=== PATIENT | female | born 1940 | race American Indian/Alaskan Native ===

== ENCOUNTER 2017-07-02 20:29 | Inpatient (IN) | payer MEDICAID ==
--- NOTE | 2017-07-02 21:40 | XRay Report ---
FINAL REPORT EXAM: XR CHEST ROUTINE 2V HISTORY: chest pain with dry cough COMPARISON: None available. FINDINGS:: Frontal and lateral views of the chest obtained. Cardiac silhouette is within normal limits. Mild elevation left hemidiaphragm. No focal consolidation or effusion. No pneumothorax. Visualized bony thorax is grossly intact. IMPRESSION:: No focal consolidation. Mild elevation left hemidiaphragm. Moderate hiatal hernia.
[2017-07-02 21:46] LABS: Basophils % (Auto) 0.8 % (0.0-1.8); Eosinophils % (Auto) 0.8 % (0.0-4.3); Hematocrit 37.7 % (30.3-42.9); Mean Corpuscular HGB Conc 32 % (30-34); Mean Corpuscular Volume 81 fl (79-97); Platelet Count 173 K/mm3 (140-440); Red Blood Count 4.64 M/mm3 (3.65-5.03); Red Cell Distribution Width 17.8 % (13.2-15.2); White Blood Count 6.2 K/mm3 (4.5-11.0)
[2017-07-02 21:47] LABS: Anion Gap 24 mmol/L; BUN/Creatinine Ratio 13; Blood Urea Nitrogen 23 mg/dL (7-17); Calcium 9.5 mg/dL (8.4-10.2); Carbon Dioxide 19 mmol/L (22-30); Chloride 95.7 mmol/L (98-107); Glucose 127 mg/dL (65-100); Potassium 5.3 mmol/L (3.6-5.0); Sodium 133 mmol/L (137-145)
[2017-07-02 21:55] LABS: Mean Corpuscular Hemoglobin 26 pg (28-32)
[2017-07-02] MEDS ORDERED: ULTRAM PO ONE (22:16)
[2017-07-02] MEDS ORDERED: ZOFRAN IV ONE (22:16)
[2017-07-02] MEDS ORDERED: NACL 0.9% 1000 ML 1,000 ML IV ONE (22:16)
[2017-07-02] MEDS ORDERED: TESSALON PERLES PO ONE (22:16)
--- NOTE | 2017-07-02 23:20 | Emergency Department Report ---
- General Chief Complaint: Chest Pain Stated Complaint: NAUSE,HEADACHE,CHEST PAIN Time Seen by Provider: 07/02/17 22:06 Source: patient, family Mode of arrival: Wheelchair Limitations: Physical Limitation - History of Present Illness Initial Comments: 76-year-old female with a past medical history of diabetes and hypertension and elevated cholesterol presents to the hospital with complaints of cough and chest pain 3 days. Patient complains of nonproductive cough which causes her anterior sternum to hurt. Pain is sharp, rated 7/10 in intensity, worse with palpation, cough, and movement. Patient states she's had constant nausea and therefore not eating or drinking appropriately. She denies vomiting, diarrhea, fever, or recent travel. Recently visited a sick family member. She did receive her flu shot. History of renal insufficiency in the past but corrected to normal with last blood test reported approximately 2 months ago in [place]. Patient is new to the area of the past 2 months and does not have a local PMD - Related Data Allergies Allergy/AdvReac Type Severity Reaction Status Date / Time codeine Allergy Unknown Verified 07/02/17 20:51 ED Review of Systems ROS: Stated complaint: NAUSE,HEADACHE,CHEST PAIN Other details as noted in HPI Comment: All other systems reviewed and negative Other: Constitutional: No fevers chills Eyes: No eye pain visual changes ENT: No ear pain or throat pain Neck: Denies pain Respiratory: Denies wheezing shortness of breath Cardiovascular: Denies palpitations, syncope GI: As per HPI denies abdominal pain, : Denies dysuria Musculoskeletal: Denies back pain Skin: Denies rash, lesions, erythema Neurologic: Denies headache, numbness, weakness Psychiatric: Denies suicidal ideation, hallucinations ED Past Medical Hx - Past Medical History Previous Medical History?: Yes Hx Hypertension: Yes Hx Diabetes: Yes Additional medical history: High Cholesterol - Social History Smoking Status: Never Smoker Substance Use Type: None ED Physical Exam - General Limitations: Physical Limitation - Other Other exam information: General: No limitations, patient is alert in no acute distress Head exam: Atraumatic, normocephalic Eyes exam: Normal appearance ENT: Moist mucous membrane, normal oropharynx Neck exam: Normal inspection, full range of motion, no meningismus nontender Respiratory exam: Clear to auscultation bilateral, no wheezes, rales, crackles Cardiovascular: Tachycardic, regular rhythm, reproducible sternal chest wall tenderness Abdomen: Soft, nondistended, mild epigastric tendern normal heart souess, no rebound or guarding, normal bowel sounds Extremity: Full range of motion normal inspection no deformity Back: Normal Inspection, full range of motion, no tenderness Neurologic: Alert, oriented x3, cranial nerves intact, no motor or sensory deficit Psychiatric: normal affect, normal mood Skin: Warm, dry, intact ED Course Vital Signs 07/02/17 07/02/17 07/02/17 20:56 21:39 21:45 Temperature 98.9 F Pulse Rate 69 108 H Respiratory 20 12 18 Rate Blood Pressure 93/72 136/85 Blood Pressure [Left] O2 Sat by Pulse 98 Oximetry 07/02/17 07/02/17 07/02/17 21:46 22:00 22:15 Temperature 99.8 F H Pulse Rate 113 H 104 H 107 H Respiratory 19 15 12 Rate Blood Pressure 132/77 134/78 Blood Pressure 142/80 [Left] O2 Sat by Pulse 96 95 94 Oximetry 07/02/17 07/02/17 07/02/17 22:30 22:45 22:46 Temperature Pulse Rate 105 H 104 H Respiratory 18 14 19 Rate Blood Pressure 136/84 124/66 Blood Pressure [Left] O2 Sat by Pulse 95 97 Oximetry 07/02/17 07/02/17 07/02/17 23:00 23:15 23:30 Temperature Pulse Rate 102 H 99 H 99 H Respiratory 22 23 23 Rate Blood Pressure 136/86 138/82 138/85 Blood Pressure [Left] O2 Sat by Pulse 93 90 94 Oximetry 07/02/17 07/03/17 07/03/17 23:45 00:01 00:05 Temperature Pulse Rate 99 H 111 H 103 H Respiratory 22 12 16 Rate Blood Pressure 144/77 144/77 144/77 Blood Pressure [Left] O2 Sat by Pulse 91 96 97 Oximetry 07/03/17 07/03/17 07/03/17 00:15 00:31 00:45 Temperature Pulse Rate 97 H 95 H 102 H Respiratory 21 22 22 Rate Blood Pressure 144/77 144/77 144/77 Blood Pressure [Left] O2 Sat by Pulse 94 95 94 Oximetry 07/03/17 00:56 Temperature 98.8 F Pulse Rate 106 H Respiratory 18 Rate Blood Pressure Blood Pressure 107/72 [Left] O2 Sat by Pulse 97 Oximetry - Reevaluation(s) Reevaluation #1: 07/03/17 01:21 Patient received 1 L normal saline with improvement of heart rate. Awaiting urine output ED Medical Decision Making - Lab Data Result diagrams: 07/02/17 21:04 07/02/17 21:04 Lab Results 07/02/17 07/02/17 07/02/17 Range/Units 21:04 21:04 23:26 WBC 6.2 (4.5-11.0) K/mm3 RBC 4.64 (3.65-5.03) M/mm3 Hgb 12.0 (10.1-14.3) gm/dl Hct 37.7 (30.3-42.9) % MCV 81 (79-97) fl MCH 26 L (28-32) pg MCHC 32 (30-34) % RDW 17.8 H (13.2-15.2) % Plt Count 173 (140-440) K/mm3 Lymph % (Auto) 19.3 (13.4-35.0) % [place] % (Auto) 13.3 H (0.0-7.3) % Eos % (Auto) 0.8 (0.0-4.3) % Baso % (Auto) 0.8 (0.0-1.8) % Lymph # 1.2 (1.2-5.4) K/mm3 [place] # 0.8 (0.0-0.8) K/mm3 Eos # 0.1 (0.0-0.4) K/mm3 Baso # 0.0 (0.0-0.1) K/mm3 Seg Neutrophils % 65.8 (40.0-70.0) % Seg Neutrophils # 4.1 (1.8-7.7) K/mm3 Sodium 133 L (137-145) mmol/L Potassium 5.3 H (3.6-5.0) mmol/L Chloride 95.7 L (98-107) mmol/L Carbon Dioxide 19 L (22-30) mmol/L Anion Gap 24 mmol/L BUN 23 H (7-17) mg/dL Creatinine 1.8 H (0.7-1.2) mg/dL Estimated GFR 33 ml/min BUN/Creatinine Ratio 13 % Glucose 127 H (65-100) mg/dL Calcium 9.5 (8.4-10.2) mg/dL Troponin T < 0.010 < 0.010 (0.00-0.029) ng/mL - EKG Data -: EKG Interpreted by Me EKG shows normal: sinus rhythm, axis (QRS -40), QRS complexes (79), ST-T waves ( upright T waves no ST elevation MT) Rate: tachycardia (112) - EKG Data 07/03/17 01:21 BP EKG shows no acute changes. Improved heart rate down to 97 after IV fluid - Radiology Data Radiology results: image reviewed (chest x-ray: Moderate hiatal hernia no acute infiltrate) - Medical Decision Making Patient treated with Tessalon Perles, tramadol, normal saline, and Zofran Chest pain is reproducible at the breastbone likely secondary to coughing Chest x-ray without acute infiltrate I suspect that patient's initially abnormalities and renal insufficiency likely secondary to poor by mouth intake and dehydration. Patient will be admitted to the hospital for further treatment. - Differential Diagnosis costochondritis, pneumonia, viral syndrome, dehydration, MT Critical Care Time: No Critical care attestation.: If time is entered above; I have spent that time in minutes in the direct care of this critically ill patient, excluding procedure time. ED Disposition Clinical Impression: Viral syndrome, Costochondritis, Nausea, Acute renal insufficiency, Hyperkalemia, Hyponatremia, Hiatal hernia Disposition: -09 OP ADMIT IP TO THIS HOSP Is pt being admited?: Yes Condition: Stable Time of Disposition: 23:19 (Dr Liao/hosp)
--- NOTE | 2017-07-02 23:56 | History and Physical Report ---
History of Present Illness Date of examination: 07/02/17 History of present illness: 76-year-old man with a history of hypertension, diabetes, hyperlipidemia comes emergency room with complaints of nonproductive cough, generalized body aches since Monday. She had decreased appetite, no oral intake since that time. Review Of Systems: Constitutional: no weight loss Ears, eyes, nose, mouth and throat: no nasal congestion, no nasal discharge, no sinus pressure, blurry vision, diplopia Neck: No neck pain or rigidity. Cardiovascular: no chest pain, orthopnea, palpitations Respiratory: No shortness of breath Gastrointestinal: no abdominal pain, hematochezia Genitourinary : no dysuria, frequency , hematuria Musculoskeletal: no muscle ache Integumentary: no rash, no pruritis Neurological: no parathesias, focal weakness Endocrine: no cold or heat intolerance, no polyuria or polydipsia Hematologic/Lymphatic: no easy bruising, no easy bleeding, no gland swelling Allergic/Immunologic: no urticaria, no angioedema. PAST MEDICAL HISTORY: hypertension, diabetes, hyperlipidemia PAST SURGICAL HISTORY: None FAMILY HISTORY: Hypertention, diabetes SOCIAL HISTORY: Denies tobacco, alcohol, drugs Medications and Allergies Allergies Allergy/AdvReac Type Severity Reaction Status Date / Time codeine Allergy Unknown Verified 07/02/17 20:51 Exam - Physical Exam Narrative exam: Gen. appearance: Patient lying in bed in no acute distress HEENT: Normocephalic/atraumatic, pupils equal round reactive to light, extra alkaline movement intact, no scleral icterus, no JVD or thyromegaly or nodule, neck is supple, mucous membrane moist, no erythema or exudate Heart: S1-S2, regular rate and rhythm Lungs: Clear to auscultation bilateral breathing comfortable Abdomen: Positive bowel sounds, nontender, nondistended, no organomegaly Extremities: No edema, cyanosis, clubbing Neuro:: Oriented 3 , cranial nerves II-12 intact, speech, motor intact Skin: No rash, nodules, warm dry - Constitutional Vitals: Temp Pulse Resp BP Pulse Ox 99.8 F H 113 H 19 142/80 96 07/02/17 21:46 07/02/17 21:46 07/02/17 22:46 07/02/17 21:46 07/02/17 21:46 Results - Labs CBC & Chem 7: 07/02/17 21:04 07/02/17 21:04 Labs: Abnormal lab results 07/02/17 07/02/17 Range/Units 21:04 21:04 MCH 26 L (28-32) pg RDW 17.8 H (13.2-15.2) % [place] % (Auto) 13.3 H (0.0-7.3) % Sodium 133 L (137-145) mmol/L Potassium 5.3 H (3.6-5.0) mmol/L Chloride 95.7 L (98-107) mmol/L Carbon Dioxide 19 L (22-30) mmol/L BUN 23 H (7-17) mg/dL Creatinine 1.8 H (0.7-1.2) mg/dL Glucose 127 H (65-100) mg/dL - Imaging and Cardiology EKG: image reviewed Chest x-ray: image reviewed Assessment and Plan Assessment Acute renal insufficiency Acute bronchitis Hypertension Diabetes Hyperlipidemia Plan Admit medicine Heart IV fluids, IV Levaquin Check fingersticks and initiate insulin sliding scale Continue appropriate outpatient medications DVT prophylaxis
[2017-07-03] MEDS ORDERED: DULCOLAX PR PRN (00:42)
[2017-07-03] MEDS ORDERED: TYLENOL PO PRN (00:42)
[2017-07-03] MEDS ORDERED: LEVAQUIN 750MG/150ML 750 MG/150 ML BAG IV SCH (00:42)
[2017-07-03] MEDS ORDERED: MILK OF MAGNESIA PO PRN (00:42)
[2017-07-03] MEDS ORDERED: D50W (25GM) Syringe IV PRN (00:42)
[2017-07-03] MEDS ORDERED: ZOFRAN IV PRN (00:42)
[2017-07-03] MEDS ORDERED: APRESOLINE IV PRN (00:50)
[2017-07-03] MEDS: NACL 0.9% 1000 ML 1,000 ML IV SCH ×2 (02:35→13:46)
[2017-07-03] MEDS ORDERED: BENADRYL IV PRN (02:48)
[2017-07-03] MEDS: ZITHROMAX 500 MG in NACL 0.9% 250ML 250 ML IV SCH ×2 (04:26→09:19)
[2017-07-03] MEDS: NOVOLOG SUB-Q SCH ×4 (07:33→23:44)
[2017-07-03 08:29] LABS: Hematocrit 33.3 % (30.3-42.9); Hemoglobin 10.7 gm/dl (10.1-14.3); Mean Corpuscular HGB Conc 32 % (30-34); Mean Corpuscular Hemoglobin 27 pg (28-32); Mean Corpuscular Volume 82 fl (79-97); Platelet Count 131 K/mm3 (140-440); Red Blood Count 4.06 M/mm3 (3.65-5.03); Red Cell Distribution Width 18.1 % (13.2-15.2); White Blood Count 4.1 K/mm3 (4.5-11.0)
[2017-07-03 08:44] LABS: Calcium 8.6 mg/dL (8.4-10.2); Chloride 101.9 mmol/L (98-107); Potassium 4.9 mmol/L (3.6-5.0)
[2017-07-03] MEDS ORDERED: LOVENOX SUB-Q SCH (10:00)
[2017-07-03] MEDS ORDERED: ZITHROMAX 500 MG in NACL 0.9% 250ML 250 ML IV SCH (10:00)
--- NOTE | 2017-07-03 14:54 | Progress Note ---
<NIR MARTINEZ - Last Filed: 07/03/17 15:03> Assessment and Plan Assessment and plan: 76-year-old female with a history of hypertension, diabetes, hyperlipidemia comes emergency room with complaints of nonproductive cough, generalized body aches since Monday. She had decreased appetite, no oral intake since that time. Assessment and Plan Acute renal insufficiency Continue IV fluids Recheck labs in am. If no improvement/trending up Nephrology consult Acute bronchitis Continue IV ABX Hypertension Continue antihypertensives Diabetes SSI, Accu checks DVT prophylaxis Lovenox History Interval history: Patient is alert and resting comfortably in bed. She denies shortness of breath chest pain nausea vomiting Hospitalist Physical - Constitutional Vitals: Temp Pulse Resp BP Pulse Ox 99.2 F 93 H 20 108/69 96 07/03/17 13:18 07/03/17 13:18 07/03/17 13:18 07/03/17 13:18 07/03/17 13:18 General appearance: Present: no acute distress, well-nourished - EENT Eyes: Present: PERRL, EOM intact ENT: hearing intact, clear oral mucosa, dentition normal - Neck Neck: Present: supple, normal ROM - Respiratory Respiratory effort: normal Respiratory: bilateral: CTA - Cardiovascular Rhythm: regular Heart Sounds: Present: S1 & S2 - Extremities Extremities: no ischemia, No edema Peripheral Pulses: within normal limits - Abdominal General gastrointestinal: soft, non-tender - Integumentary Integumentary: Present: clear, warm, dry - Psychiatric Psychiatric: appropriate mood/affect, intact judgment & insight, cooperative - Neurologic Neurologic: CNII-XII intact, moves all extremities - Allied Health Allied health notes reviewed: nursing Results - Labs CBC & Chem 7: 07/03/17 08:09 07/03/17 08:09 Labs: Laboratory Last Values WBC 4.1 K/mm3 (4.5-11.0) L 07/03/17 08:09 RBC 4.06 M/mm3 (3.65-5.03) 07/03/17 08:09 Hgb 10.7 gm/dl (10.1-14.3) 07/03/17 08:09 Hct 33.3 % (30.3-42.9) 07/03/17 08:09 MCV 82 fl (79-97) 07/03/17 08:09 MCH 27 pg (28-32) L 07/03/17 08:09 MCHC 32 % (30-34) 07/03/17 08:09 RDW 18.1 % (13.2-15.2) H 07/03/17 08:09 Plt Count 131 K/mm3 (140-440) L 07/03/17 08:09 Lymph % (Auto) 19.3 % (13.4-35.0) 07/02/17 21:04 [place] % (Auto) 13.3 % (0.0-7.3) H 07/02/17 21:04 Eos % (Auto) 0.8 % (0.0-4.3) 07/02/17 21:04 Baso % (Auto) 0.8 % (0.0-1.8) 07/02/17 21:04 Lymph # 1.2 K/mm3 (1.2-5.4) 07/02/17 21:04 [place] # 0.8 K/mm3 (0.0-0.8) 07/02/17 21:04 Eos # 0.1 K/mm3 (0.0-0.4) 07/02/17 21:04 Baso # 0.0 K/mm3 (0.0-0.1) 07/02/17 21:04 Seg Neutrophils % 65.8 % (40.0-70.0) 07/02/17 21:04 Seg Neutrophils # 4.1 K/mm3 (1.8-7.7) 07/02/17 21:04 Sodium 138 mmol/L (137-145) 07/03/17 08:09 Potassium 4.9 mmol/L (3.6-5.0) 07/03/17 08:09 Chloride 101.9 mmol/L (98-107) 07/03/17 08:09 Carbon Dioxide 23 mmol/L (22-30) 07/03/17 08:09 Anion Gap 18 mmol/L 07/03/17 08:09 BUN 24 mg/dL (7-17) H 07/03/17 08:09 Creatinine 1.6 mg/dL (0.7-1.2) H 07/03/17 08:09 Estimated GFR 38 ml/min 07/03/17 08:09 BUN/Creatinine Ratio 15 % 07/03/17 08:09 Glucose 99 mg/dL (65-100) 07/03/17 08:09 POC Glucose 101 (70-105) 07/03/17 11:55 Calcium 8.6 mg/dL (8.4-10.2) 07/03/17 08:09 Troponin T < 0.010 ng/mL (0.00-0.029) 07/03/17 05:50 - Imaging and Cardiology EKG: report reviewed <BANDAR CHESTER - Last Filed: 07/04/17 18:46> Assessment and Plan Assessment and plan: I saw and evaluated the patient. I agree with the findings and the plan of care as documented in the Nurse Practitioner's~note, with the following corrections and additions. Patient is 76 yo with acute bronchitis, TRICIA due to vasomotor nephropathy. Continue iv fluids. Hospitalist Physical - Constitutional Vitals: Temp Pulse Resp BP Pulse Ox 99.0 F 87 20 151/79 99 07/04/17 16:21 07/04/17 16:21 07/04/17 16:21 07/04/17 16:21 07/04/17 16:21 Results - Labs CBC & Chem 7: 07/04/17 04:52 07/04/17 04:52 Labs: Laboratory Last Values WBC 4.2 K/mm3 (4.5-11.0) L 07/04/17 04:52 RBC 4.23 M/mm3 (3.65-5.03) 07/04/17 04:52 Hgb 10.8 gm/dl (10.1-14.3) 07/04/17 04:52 Hct 34.2 % (30.3-42.9) 07/04/17 04:52 MCV 81 fl (79-97) 07/04/17 04:52 MCH 26 pg (28-32) L 07/04/17 04:52 MCHC 32 % (30-34) 07/04/17 04:52 RDW 17.6 % (13.2-15.2) H 07/04/17 04:52 Plt Count 147 K/mm3 (140-440) 07/04/17 04:52 Lymph % (Auto) 38.3 % (13.4-35.0) H 07/04/17 04:52 [place] % (Auto) 9.0 % (0.0-7.3) H 07/04/17 04:52 Eos % (Auto) 1.6 % (0.0-4.3) 07/04/17 04:52 Baso % (Auto) 0.6 % (0.0-1.8) 07/04/17 04:52 Lymph # 1.6 K/mm3 (1.2-5.4) 07/04/17 04:52 [place] # 0.4 K/mm3 (0.0-0.8) 07/04/17 04:52 Eos # 0.1 K/mm3 (0.0-0.4) 07/04/17 04:52 Baso # 0.0 K/mm3 (0.0-0.1) 07/04/17 04:52 Seg Neutrophils % 50.5 % (40.0-70.0) 07/04/17 04:52 Seg Neutrophils # 2.1 K/mm3 (1.8-7.7) 07/04/17 04:52 Sodium 141 mmol/L (137-145) 07/04/17 04:52 Potassium 4.8 mmol/L (3.6-5.0) 07/04/17 04:52 Chloride 104.7 mmol/L (98-107) 07/04/17 04:52 Carbon Dioxide 22 mmol/L (22-30) 07/04/17 04:52 Anion Gap 19 mmol/L 07/04/17 04:52 BUN 21 mg/dL (7-17) H 07/04/17 04:52 Creatinine 1.4 mg/dL (0.7-1.2) H 07/04/17 04:52 Estimated GFR 44 ml/min 07/04/17 04:52 BUN/Creatinine Ratio 15 % 07/04/17 04:52 Glucose 88 mg/dL (65-100) 07/04/17 04:52 POC Glucose 100 (70-105) 07/04/17 16:27 Calcium 9.1 mg/dL (8.4-10.2) 07/04/17 04:52 Troponin T < 0.010 ng/mL (0.00-0.029) 07/03/17 05:50
[2017-07-04 05:26] LABS: Basophils % (Auto) 0.6 % (0.0-1.8); Eosinophils % (Auto) 1.6 % (0.0-4.3); Hematocrit 34.2 % (30.3-42.9); Hemoglobin 10.8 gm/dl (10.1-14.3); Mean Corpuscular HGB Conc 32 % (30-34); Mean Corpuscular Hemoglobin 26 pg (28-32); Mean Corpuscular Volume 81 fl (79-97); Platelet Count 147 K/mm3 (140-440); Red Blood Count 4.23 M/mm3 (3.65-5.03); Red Cell Distribution Width 17.6 % (13.2-15.2); White Blood Count 4.2 K/mm3 (4.5-11.0)
[2017-07-04 05:44] LABS: Calcium 9.1 mg/dL (8.4-10.2); Chloride 104.7 mmol/L (98-107); Potassium 4.8 mmol/L (3.6-5.0)
[2017-07-04] MEDS: NOVOLOG SUB-Q SCH ×4 (07:30→22:17)
[2017-07-04] MEDS ORDERED: PROVENTIL IH PRN (09:22)
[2017-07-04] MEDS: LOVENOX SUB-Q SCH (10:00)
[2017-07-04] MEDS: ZITHROMAX PO SCH (10:02)
--- NOTE | 2017-07-04 10:07 | Progress Note ---
<NIR MARTINEZ - Last Filed: 07/04/17 15:40> Assessment and Plan Assessment and plan: 76-year-old female with a history of hypertension, diabetes, hyperlipidemia comes emergency room with complaints of nonproductive cough, generalized body aches since Monday. She had decreased appetite, no oral intake since that time. Assessment and Plan Acute renal insufficiency Continue IV fluids BUN Cr trending down will check in am Acute bronchitis Continue IV ABX Hypertension Continue antihypertensives Diabetes SSI, Accu checks DVT prophylaxis Lovenox History Interval history: Patient is alert and resting comfortably in bed. She denies shortness of breath chest pain nausea vomiting Hospitalist Physical - Constitutional Vitals: Temp Pulse Resp BP Pulse Ox 99.4 F 82 22 103/52 96 07/04/17 07:43 07/04/17 07:43 07/04/17 07:43 07/04/17 07:43 07/04/17 07:43 General appearance: Present: no acute distress, well-nourished - EENT Eyes: Present: PERRL, EOM intact ENT: hearing intact, clear oral mucosa - Neck Neck: Present: supple, normal ROM - Respiratory Respiratory effort: normal Respiratory: bilateral: CTA - Cardiovascular Rhythm: regular Heart Sounds: Present: S1 & S2 - Extremities Extremities: no ischemia, No edema Peripheral Pulses: within normal limits - Abdominal General gastrointestinal: soft, non-tender - Integumentary Integumentary: Present: clear, warm, erythema - Neurologic Neurologic: CNII-XII intact, moves all extremities - Allied Health Allied health notes reviewed: nursing Results - Labs CBC & Chem 7: 07/04/17 04:52 07/04/17 04:52 Labs: Laboratory Last Values WBC 4.2 K/mm3 (4.5-11.0) L 07/04/17 04:52 RBC 4.23 M/mm3 (3.65-5.03) 07/04/17 04:52 Hgb 10.8 gm/dl (10.1-14.3) 07/04/17 04:52 Hct 34.2 % (30.3-42.9) 07/04/17 04:52 MCV 81 fl (79-97) 07/04/17 04:52 MCH 26 pg (28-32) L 07/04/17 04:52 MCHC 32 % (30-34) 07/04/17 04:52 RDW 17.6 % (13.2-15.2) H 07/04/17 04:52 Plt Count 147 K/mm3 (140-440) 07/04/17 04:52 Lymph % (Auto) 38.3 % (13.4-35.0) H 07/04/17 04:52 [place] % (Auto) 9.0 % (0.0-7.3) H 07/04/17 04:52 Eos % (Auto) 1.6 % (0.0-4.3) 07/04/17 04:52 Baso % (Auto) 0.6 % (0.0-1.8) 07/04/17 04:52 Lymph # 1.6 K/mm3 (1.2-5.4) 07/04/17 04:52 [place] # 0.4 K/mm3 (0.0-0.8) 07/04/17 04:52 Eos # 0.1 K/mm3 (0.0-0.4) 07/04/17 04:52 Baso # 0.0 K/mm3 (0.0-0.1) 07/04/17 04:52 Seg Neutrophils % 50.5 % (40.0-70.0) 07/04/17 04:52 Seg Neutrophils # 2.1 K/mm3 (1.8-7.7) 07/04/17 04:52 Sodium 141 mmol/L (137-145) 07/04/17 04:52 Potassium 4.8 mmol/L (3.6-5.0) 07/04/17 04:52 Chloride 104.7 mmol/L (98-107) 07/04/17 04:52 Carbon Dioxide 22 mmol/L (22-30) 07/04/17 04:52 Anion Gap 19 mmol/L 07/04/17 04:52 BUN 21 mg/dL (7-17) H 07/04/17 04:52 Creatinine 1.4 mg/dL (0.7-1.2) H 07/04/17 04:52 Estimated GFR 44 ml/min 07/04/17 04:52 BUN/Creatinine Ratio 15 % 07/04/17 04:52 Glucose 88 mg/dL (65-100) 07/04/17 04:52 POC Glucose 80 (70-105) 07/04/17 05:28 Calcium 9.1 mg/dL (8.4-10.2) 07/04/17 04:52 Troponin T < 0.010 ng/mL (0.00-0.029) 07/03/17 05:50 <BANDAR CHESTER - Last Filed: 07/04/17 18:52> Assessment and Plan Assessment and plan: I saw and evaluated the patient. I agree with the findings and the plan of care as documented in the Nurse Practitioner's~note, with the following corrections and additions. Patient complains of wheezing; TRICIA due to vasomotor nephropathy. Inproving Cr 1.4 today Acute bronchitis. add Duoneb Diabetes mellitus type 2 Hospitalist Physical - Constitutional Vitals: Temp Pulse Resp BP Pulse Ox 99.0 F 87 20 151/79 99 07/04/17 16:21 07/04/17 16:21 07/04/17 16:21 07/04/17 16:21 07/04/17 16:21 Results - Labs CBC & Chem 7: 07/04/17 04:52 07/04/17 04:52 Labs: Laboratory Last Values WBC 4.2 K/mm3 (4.5-11.0) L 07/04/17 04:52 RBC 4.23 M/mm3 (3.65-5.03) 07/04/17 04:52 Hgb 10.8 gm/dl (10.1-14.3) 07/04/17 04:52 Hct 34.2 % (30.3-42.9) 07/04/17 04:52 MCV 81 fl (79-97) 07/04/17 04:52 MCH 26 pg (28-32) L 07/04/17 04:52 MCHC 32 % (30-34) 07/04/17 04:52 RDW 17.6 % (13.2-15.2) H 07/04/17 04:52 Plt Count 147 K/mm3 (140-440) 07/04/17 04:52 Lymph % (Auto) 38.3 % (13.4-35.0) H 07/04/17 04:52 [place] % (Auto) 9.0 % (0.0-7.3) H 07/04/17 04:52 Eos % (Auto) 1.6 % (0.0-4.3) 07/04/17 04:52 Baso % (Auto) 0.6 % (0.0-1.8) 07/04/17 04:52 Lymph # 1.6 K/mm3 (1.2-5.4) 07/04/17 04:52 [place] # 0.4 K/mm3 (0.0-0.8) 07/04/17 04:52 Eos # 0.1 K/mm3 (0.0-0.4) 07/04/17 04:52 Baso # 0.0 K/mm3 (0.0-0.1) 07/04/17 04:52 Seg Neutrophils % 50.5 % (40.0-70.0) 07/04/17 04:52 Seg Neutrophils # 2.1 K/mm3 (1.8-7.7) 07/04/17 04:52 Sodium 141 mmol/L (137-145) 07/04/17 04:52 Potassium 4.8 mmol/L (3.6-5.0) 07/04/17 04:52 Chloride 104.7 mmol/L (98-107) 07/04/17 04:52 Carbon Dioxide 22 mmol/L (22-30) 07/04/17 04:52 Anion Gap 19 mmol/L 07/04/17 04:52 BUN 21 mg/dL (7-17) H 07/04/17 04:52 Creatinine 1.4 mg/dL (0.7-1.2) H 07/04/17 04:52 Estimated GFR 44 ml/min 07/04/17 04:52 BUN/Creatinine Ratio 15 % 07/04/17 04:52 Glucose 88 mg/dL (65-100) 07/04/17 04:52 POC Glucose 100 (70-105) 07/04/17 16:27 Calcium 9.1 mg/dL (8.4-10.2) 07/04/17 04:52 Troponin T < 0.010 ng/mL (0.00-0.029) 07/03/17 05:50
[2017-07-04] MEDS: DUONEB *Not for PRN Use IH SCH ×3 (10:18→21:04)
[2017-07-04] MEDS: NACL 0.9% 1000 ML 1,000 ML IV SCH (22:16)
[2017-07-05] MEDS: DUONEB *Not for PRN Use IH SCH ×4 (02:37→20:58)
[2017-07-05] MEDS: NOVOLOG SUB-Q SCH ×4 (07:30→22:00)
[2017-07-05] MEDS: LOVENOX SUB-Q SCH (09:52)
[2017-07-05] MEDS: ZITHROMAX PO SCH (09:55)
[2017-07-05 10:35] LABS: Albumin 3.5 g/dL (3.9-5); Albumin/Globulin Ratio 1.2 %; Bilirubin,Total 0.3 mg/dL (0.1-1.2); Calcium 8.6 mg/dL (8.4-10.2); Chloride 105.9 mmol/L (98-107); Total Protein 6.4 g/dL (6.3-8.2)
--- NOTE | 2017-07-05 12:19 | Discharge Summary ---
<NIR MARTINEZ - Last Filed: 07/06/17 11:56> Providers - Providers Date of Admission: 07/02/17 23:55 Date of discharge: 07/06/17 Attending physician: BANDAR CHESTER Primary care physician: [employer] EDUCATION RESOURCE TEACHER Hospitalization Condition: Stable Hospital course: 76-year-old female with a past medical history of diabetes and hypertension and elevated cholesterol presents to the hospital with complaints of cough and chest pain 3 days. Patient complains of nonproductive cough which causes her anterior sternum to hurt. Pain is sharp, rated 7/10 in intensity, worse with palpation, cough, and movement. Patient states she's had constant nausea and therefore not eating or drinking appropriately. She denies vomiting, diarrhea, fever, or recent travel. Recently visited a sick family member. She did receive her flu shot. History of renal insufficiency in the past but corrected to normal with last blood test reported approximately 2 months ago in [place]. Chest X ray showed no focal consolidation, mild elevation left hemidiaphragm, hiatal hernia. Patient was treated with abx along with Duoneb. She was placed on Lovenox for DVT prophylaxis and was placed on SSI for antihypertensives DM and HTN. Discharge Diagnosis Acute renal insufficiency Acute bronchitis Hypertension Diabetes Disposition: DC- TO HOME OR SELFCARE Core Measure Documentation - Palliative Care Palliative Care/ Comfort Measures: Not Applicable - Core Measures Any of the following diagnoses?: none Exam - Constitutional Vitals: Temp Pulse Resp BP Pulse Ox 98.5 F 84 19 126/73 98 07/05/17 08:01 07/05/17 08:01 07/05/17 08:01 07/05/17 08:01 07/05/17 08:01 General appearance: Present: no acute distress, well-nourished, obese - EENT Eyes: Present: PERRL, EOM intact ENT: hearing intact, clear oral mucosa, dentition normal - Neck Neck: Present: supple, normal ROM - Respiratory Respiratory effort: normal Respiratory: bilateral: CTA - Cardiovascular Rhythm: regular Heart Sounds: Present: S1 & S2 - Extremities Extremities: pulses symmetrical, No edema Peripheral Pulses: within normal limits - Abdominal General gastrointestinal: Present: soft, non-tender, non-distended, normal bowel sounds Female genitourinary: Present: deferred - Rectal Rectal Exam: deferred - Integumentary Integumentary: Present: clear, warm, dry - Musculoskeletal Musculoskeletal: gait normal, strength equal bilaterally - Psychiatric Psychiatric: appropriate mood/affect, intact judgment & insight - Neurologic Neurologic: CNII-XII intact, moves all extremities - Allied Health Allied health notes reviewed: nursing Plan Diet: low fat, low cholesterol, low salt, diabetic Follow up with: PRIMARY CARE, [Primary Care Provider] - 3-5 Days Prescriptions: ALBUTEROL Inhaler [ProAir HFA Inhaler] 2 puff IH QID PRN #1 inhalation PRN Reason: Shortness Of Breath Azithromycin [Zithromax Z-ULISES] 250 mg PO DAILY #1 tab Prednisone [predniSONE 5 mg (6-Day Pack, 21 Tabs)] 5 mg PO .TAPER #1 tab.ds.pk <ANNA TRAORE - Last Filed: 07/07/17 08:44> Providers - Providers Date of Admission: 07/02/17 23:55 Attending physician: ANNA TRAORE Primary care physician: [employer] RESOURCE TEACHER Hospitalization Hospital course: I saw and evaluated the patient. I agree with the findings and the plan of care as documented in the Nurse Practitioner's~note. Exam - Constitutional Vitals: Temp Pulse Resp BP Pulse Ox 99.1 F 92 H 15 131/81 98 07/06/17 12:03 07/06/17 12:03 07/06/17 12:03 07/06/17 12:03 07/06/17 12:03
--- NOTE | 2017-07-05 12:49 | Query- Renal Failure ---
Yasmine Lund___Ac Date:__07/05/2017 Deportation Officer/SUN:___Ritika Phone#:__[phone] Exercise your independent professional judgment when responding to query. Questions asked do not imply a particular answer is desired or expected. We greatly appreciate your clarification on this issue. Clinical Documentation States: 76 Year old female was admitted on 07/02/2017 for upper respiratory failure. The Discharge summary states "Discharge Diagnosis Acute renal insufficiency." Clinical Findings Show: Creatinine: 1.8 Please clarify if you mean: Acute Renal Failure with or due to: [ ] Tubular Necrosis [ ] Medullary Necrosis [x ] Vasomotor Nephropathy [ ] Shock Kidney [ ] Tubular Nephrosis [ ] Renal Tubular Stasis [ ] Cortical Necrosis [ ] Acute Renal Failure (unspecified) [ ] Lower Tubular Nephrosis [ ] Other: [ ] Not Applicable Present on Admission: [ x] Yes (Y) [ ] Clinically undeterminable (W) [ ] No (N) Please also document response in your Progress Notes and/or Discharge Summary and indicate if the condition was present on admission. MONIQUE
--- NOTE | 2017-07-05 14:43 | Progress Note ---
<NIR MARTINEZ - Last Filed: 07/05/17 14:42> Assessment and Plan Assessment and plan: 76-year-old female with a history of hypertension, diabetes, hyperlipidemia comes emergency room with complaints of nonproductive cough, generalized body aches since Monday. She had decreased appetite, no oral intake since that time. Assessment and Plan Acute renal insufficiency Continue IV fluids BUN Cr trending down will check in am, if normal pt likely to be discharged Acute bronchitis Continue IV ABX Hypertension Continue antihypertensives Diabetes SSI, Accu checks DVT prophylaxis Lovenox History Interval history: Patient is alert and resting comfortably in bed. She denies shortness of breath chest pain nausea vomiting Hospitalist Physical - Constitutional Vitals: Temp Pulse Resp BP Pulse Ox 98.5 F 84 19 126/73 98 07/05/17 08:01 07/05/17 08:01 07/05/17 08:01 07/05/17 08:01 07/05/17 08:01 General appearance: Present: no acute distress, well-nourished, obese - EENT Eyes: Present: PERRL, EOM intact ENT: hearing intact, clear oral mucosa - Neck Neck: Present: supple, normal ROM - Respiratory Respiratory effort: normal Respiratory: bilateral: CTA - Cardiovascular Rhythm: regular Heart Sounds: Present: S1 & S2 - Extremities Extremities: no ischemia, No edema Peripheral Pulses: within normal limits - Integumentary Integumentary: Present: clear, warm, dry - Psychiatric Psychiatric: appropriate mood/affect, intact judgment & insight - Neurologic Neurologic: CNII-XII intact - Allied Health Allied health notes reviewed: nursing Results - Labs CBC & Chem 7: 07/04/17 04:52 07/05/17 09:35 Labs: Laboratory Last Values WBC 4.2 K/mm3 (4.5-11.0) L 07/04/17 04:52 RBC 4.23 M/mm3 (3.65-5.03) 07/04/17 04:52 Hgb 10.8 gm/dl (10.1-14.3) 07/04/17 04:52 Hct 34.2 % (30.3-42.9) 07/04/17 04:52 MCV 81 fl (79-97) 07/04/17 04:52 MCH 26 pg (28-32) L 07/04/17 04:52 MCHC 32 % (30-34) 07/04/17 04:52 RDW 17.6 % (13.2-15.2) H 07/04/17 04:52 Plt Count 147 K/mm3 (140-440) 07/04/17 04:52 Lymph % (Auto) 38.3 % (13.4-35.0) H 07/04/17 04:52 [place] % (Auto) 9.0 % (0.0-7.3) H 07/04/17 04:52 Eos % (Auto) 1.6 % (0.0-4.3) 07/04/17 04:52 Baso % (Auto) 0.6 % (0.0-1.8) 07/04/17 04:52 Lymph # 1.6 K/mm3 (1.2-5.4) 07/04/17 04:52 [place] # 0.4 K/mm3 (0.0-0.8) 07/04/17 04:52 Eos # 0.1 K/mm3 (0.0-0.4) 07/04/17 04:52 Baso # 0.0 K/mm3 (0.0-0.1) 07/04/17 04:52 Seg Neutrophils % 50.5 % (40.0-70.0) 07/04/17 04:52 Seg Neutrophils # 2.1 K/mm3 (1.8-7.7) 07/04/17 04:52 Sodium 142 mmol/L (137-145) 07/05/17 09:35 Potassium 4.0 mmol/L (3.6-5.0) 07/05/17 09:35 Chloride 105.9 mmol/L (98-107) 07/05/17 09:35 Carbon Dioxide 20 mmol/L (22-30) L 07/05/17 09:35 Anion Gap 20 mmol/L 07/05/17 09:35 BUN 16 mg/dL (7-17) 07/05/17 09:35 Creatinine 1.3 mg/dL (0.7-1.2) H 07/05/17 09:35 Estimated GFR 48 ml/min 07/05/17 09:35 BUN/Creatinine Ratio 12 % 07/05/17 09:35 Glucose 170 mg/dL (65-100) H 07/05/17 09:35 POC Glucose 111 (70-105) H 07/05/17 11:35 Calcium 8.6 mg/dL (8.4-10.2) 07/05/17 09:35 Total Bilirubin 0.30 mg/dL (0.1-1.2) 07/05/17 09:35 AST 71 units/L (5-40) H 07/05/17 09:35 ALT 58 units/L (7-56) H 07/05/17 09:35 Alkaline Phosphatase 102 units/L (35-129) 07/05/17 09:35 Troponin T < 0.010 ng/mL (0.00-0.029) 07/03/17 05:50 Total Protein 6.4 g/dL (6.3-8.2) 07/05/17 09:35 Albumin 3.5 g/dL (3.9-5) L 07/05/17 09:35 Albumin/Globulin Ratio 1.2 % 07/05/17 09:35 <BANDAR CHESTER - Last Filed: 07/06/17 06:23> Assessment and Plan Assessment and plan: I saw and evaluated the patient. I agree with the findings and the plan of care as documented in the Nurse Practitioner's~note, with the following corrections and additions. Patient with TRICIA, acute bronchitis. Creatinine improving 1.3 today. Continue iv fluid and recheck in am. May d/c home if Creatinine 1.2 or less. Hospitalist Physical - Constitutional Vitals: Temp Pulse Resp BP Pulse Ox 98.6 F 99 H 18 114/70 98 07/06/17 04:30 07/06/17 04:30 07/06/17 04:30 07/06/17 04:30 07/06/17 04:30 Results - Labs CBC & Chem 7: 07/04/17 04:52 07/06/17 05:33 Labs: Laboratory Last Values WBC 4.2 K/mm3 (4.5-11.0) L 07/04/17 04:52 RBC 4.23 M/mm3 (3.65-5.03) 07/04/17 04:52 Hgb 10.8 gm/dl (10.1-14.3) 07/04/17 04:52 Hct 34.2 % (30.3-42.9) 07/04/17 04:52 MCV 81 fl (79-97) 07/04/17 04:52 MCH 26 pg (28-32) L 07/04/17 04:52 MCHC 32 % (30-34) 07/04/17 04:52 RDW 17.6 % (13.2-15.2) H 07/04/17 04:52 Plt Count 147 K/mm3 (140-440) 07/04/17 04:52 Lymph % (Auto) 38.3 % (13.4-35.0) H 07/04/17 04:52 [place] % (Auto) 9.0 % (0.0-7.3) H 07/04/17 04:52 Eos % (Auto) 1.6 % (0.0-4.3) 07/04/17 04:52 Baso % (Auto) 0.6 % (0.0-1.8) 07/04/17 04:52 Lymph # 1.6 K/mm3 (1.2-5.4) 07/04/17 04:52 [place] # 0.4 K/mm3 (0.0-0.8) 07/04/17 04:52 Eos # 0.1 K/mm3 (0.0-0.4) 07/04/17 04:52 Baso # 0.0 K/mm3 (0.0-0.1) 07/04/17 04:52 Seg Neutrophils % 50.5 % (40.0-70.0) 07/04/17 04:52 Seg Neutrophils # 2.1 K/mm3 (1.8-7.7) 07/04/17 04:52 Sodium 143 mmol/L (137-145) 07/06/17 05:33 Potassium 4.0 mmol/L (3.6-5.0) 07/06/17 05:33 Chloride 106.1 mmol/L (98-107) 07/06/17 05:33 Carbon Dioxide 22 mmol/L (22-30) 07/06/17 05:33 Anion Gap 19 mmol/L 07/06/17 05:33 BUN 15 mg/dL (7-17) 07/06/17 05:33 Creatinine 1.2 mg/dL (0.7-1.2) 07/06/17 05:33 Estimated GFR 53 ml/min 07/06/17 05:33 BUN/Creatinine Ratio 13 % 07/06/17 05:33 Glucose 109 mg/dL (65-100) H 07/06/17 05:33 POC Glucose 113 (70-105) H 07/05/17 22:50 Calcium 8.9 mg/dL (8.4-10.2) 07/06/17 05:33 Total Bilirubin 0.20 mg/dL (0.1-1.2) 07/06/17 05:33 AST 74 units/L (5-40) H 07/06/17 05:33 ALT 63 units/L (7-56) H 07/06/17 05:33 Alkaline Phosphatase 101 units/L (35-129) 07/06/17 05:33 Troponin T < 0.010 ng/mL (0.00-0.029) 07/03/17 05:50 Total Protein 6.7 g/dL (6.3-8.2) 07/06/17 05:33 Albumin 3.6 g/dL (3.9-5) L 07/06/17 05:33 Albumin/Globulin Ratio 1.2 % 07/06/17 05:33
[2017-07-06] MEDS: DUONEB *Not for PRN Use IH SCH ×2 (02:52→08:45)
[2017-07-06 06:13] LABS: Albumin 3.6 g/dL (3.9-5); Albumin/Globulin Ratio 1.2 %; Bilirubin,Total 0.2 mg/dL (0.1-1.2); Calcium 8.9 mg/dL (8.4-10.2); Chloride 106.1 mmol/L (98-107); Total Protein 6.7 g/dL (6.3-8.2)
[2017-07-06] MEDS: ZITHROMAX PO SCH (10:46)
[2017-07-06] MEDS: LOVENOX SUB-Q SCH (10:46)
[2017-07-06 12:06] VITALS: BP 131/81
== END 2017-07-06 13:09 | disposition home or self-care (01) | DRG 683 ==
LOC: ED 20:29 → 3A 23:55
PROVIDERS: ADMIT Internal Medicine; ATTEND Internal Medicine
DX: N17.0 Acute kidney failure with tubular necrosis (principal); E87.1 Hypo-osmolality and hyponatremia; I10 Essential (primary) hypertension; J20.9 Acute bronchitis, unspecified; E78.5 Hyperlipidemia, unspecified; Z88.5 Allergy status to narcotic agent; E11.9 Type 2 diabetes mellitus without complications; M94.0 Chondrocostal junction syndrome [Tietze]; E87.5 Hyperkalemia; K44.9 Diaphragmatic hernia without obstruction or gangrene; Z83.3 Family history of diabetes mellitus; Z82.49 Family history of ischemic heart disease and other diseases of the circulatory system; B34.9 Viral infection, unspecified
CPT/HCPCS: 36415; 71020; 80048; 80053; 82962; 84484; 85025; 85027; 93005; 93010; 94640; 94760; 96361; 96365; 99285; J0456; J1200; J1650; J1956; J2405; J7030; J7050

== ENCOUNTER 2017-12-20 08:35 | Outpatient (CLI) | payer MEDICAID ==
[2017-12-20 09:23] LABS: % Iron Saturation 17.29 %; Calcium 10.4 mg/dL (8.4-10.2)
[2017-12-20 09:41] LABS: Hematocrit 38.5 % (30.3-42.9); Hemoglobin 12.8 gm/dl (10.1-14.3); Mean Corpuscular HGB Conc 33 % (30-34); Mean Corpuscular Hemoglobin 27 pg (28-32); Mean Corpuscular Volume 81 fl (79-97); Red Blood Count 4.76 M/mm3 (3.65-5.03); Red Cell Distribution Width 18.1 % (13.2-15.2)
[2017-12-20 11:12] LABS: Basophils % (Manual) 0 % (0.0-1.8); RBC Morphology Normal; Total Cells Counted 100
[2017-12-20 11:19] LABS: Platelet Count 208 K/mm3 (140-440)
[2017-12-20 11:31] LABS: Bilirubin,Urine NEG (Negative); Blood,Urine NEG (Negative); Color,Urine Yellow (Yellow); Mucus,Urine FEW /HPF; Protein,Urine <15 mg/dL mg/dL (Negative); Urobilinogen,Urine < 2.0 mg/dL (<2.0)
[2017-12-20 13:51] LABS: Protein/Creatinine Ratio,Urine 0.06
== END 2017-12-20 08:36 | disposition home or self-care (01) ==
LOC: LAB 08:35
PROVIDERS: ATTEND Internal Medicine Nephrology
DX: I12.9 Hypertensive chronic kidney disease with stage 1 through stage 4 chronic kidney disease, or unspecified chronic kidney disease (principal); N18.3 Chronic kidney disease, stage 3 (moderate); N25.81 Secondary hyperparathyroidism of renal origin; E11.22 Type 2 diabetes mellitus with diabetic chronic kidney disease; D63.1 Anemia in chronic kidney disease
CPT/HCPCS: 36415; 80048; 81001; 82306; 82570; 82728; 83550; 83970; 84100; 84156; 85007; 85025

== ENCOUNTER 2018-02-06 09:15 | Outpatient (CLI) | payer MEDICAID ==
[2018-02-06 09:45] LABS: Basophils # (Auto) 0.1 K/mm3 (0.0-0.1); Basophils % (Auto) 0.8 % (0.0-1.8); Eosinophils # (Auto) 0.2 K/mm3 (0.0-0.4); Eosinophils % (Auto) 1.9 % (0.0-4.3); Hematocrit 35.5 % (30.3-42.9); Hemoglobin 11.6 gm/dl (10.1-14.3); Lymphocytes # (Auto) 2.1 K/mm3 (1.2-5.4); Mean Corpuscular HGB Conc 33 % (30-34); Mean Corpuscular Hemoglobin 27 pg (28-32); Mean Corpuscular Volume 83 fl (79-97); Monocytes # (Auto) 0.6 K/mm3 (0.0-0.8); Monocytes % (Auto) 6.7 % (0.0-7.3); Platelet Count 209 K/mm3 (140-440); Red Blood Count 4.28 M/mm3 (3.65-5.03); Red Cell Distribution Width 15.8 % (13.2-15.2)
[2018-02-06 09:50] LABS: Bacteria,Urine 2+ /HPF (Negative); Bilirubin,Urine NEG (Negative); Blood,Urine SM (Negative); Color,Urine Yellow (Yellow); Mucus,Urine FEW /HPF; Urobilinogen,Urine < 2.0 mg/dL (<2.0)
[2018-02-06 09:51] LABS: WBC,Urine > 182.0 /HPF (0.0-6.0)
[2018-02-06 09:54] LABS: Creatinine,Urine 219.8 mg/dL (0.1-20.0); Protein/Creatinine Ratio,Urine 0.25
[2018-02-06 10:02] LABS: Calcium 10.1 mg/dL (8.4-10.2)
== END 2018-02-06 09:16 | disposition home or self-care (01) ==
LOC: LAB 09:15
PROVIDERS: ATTEND Internal Medicine Nephrology
DX: E11.22 Type 2 diabetes mellitus with diabetic chronic kidney disease (principal); I12.9 Hypertensive chronic kidney disease with stage 1 through stage 4 chronic kidney disease, or unspecified chronic kidney disease; N18.3 Chronic kidney disease, stage 3 (moderate); D63.1 Anemia in chronic kidney disease; N25.81 Secondary hyperparathyroidism of renal origin; E78.5 Hyperlipidemia, unspecified; Z88.5 Allergy status to narcotic agent
CPT/HCPCS: 36415; 80048; 81001; 82570; 83970; 84156; 85025

== ENCOUNTER 2018-03-23 09:10 | Outpatient (CLI) | payer MEDICAID ==
[2018-03-23 09:36] LABS: Hematocrit 39.7 % (30.3-42.9); Hemoglobin 12.8 gm/dl (10.1-14.3); Mean Corpuscular HGB Conc 32 % (30-34); Mean Corpuscular Hemoglobin 27 pg (28-32); Mean Corpuscular Volume 85 fl (79-97); Platelet Count 207 K/mm3 (140-440); Red Blood Count 4.69 M/mm3 (3.65-5.03); Red Cell Distribution Width 15.9 % (13.2-15.2)
[2018-03-23 09:39] LABS: Bilirubin,Urine NEG (Negative); Blood,Urine NEG (Negative); Color,Urine Yellow (Yellow); Mucus,Urine FEW /HPF; Protein,Urine <15 mg/dL mg/dL (Negative); Urobilinogen,Urine < 2.0 mg/dL (<2.0)
[2018-03-23 09:53] LABS: Albumin 4.1 g/dL (3.9-5); Calcium 9.9 mg/dL (8.4-10.2)
[2018-03-23 11:18] LABS: Creatinine,Urine 161.3 mg/dL (0.1-20.0); Protein/Creatinine Ratio,Urine 0.06
== END 2018-03-23 09:11 | disposition home or self-care (01) ==
LOC: LAB 09:10
PROVIDERS: ATTEND Internal Medicine Nephrology
DX: E11.22 Type 2 diabetes mellitus with diabetic chronic kidney disease (principal); I10 Essential (primary) hypertension; M19.90 Unspecified osteoarthritis, unspecified site
CPT/HCPCS: 36415; 80053; 81001; 82570; 84156; 85027

== ENCOUNTER 2018-08-21 10:19 | Outpatient (CLI) | payer MEDICAID ==
--- NOTE | 2018-08-21 11:52 | Mammography Report ---
BILATERAL DIGITAL SCREENING MAMMOGRAM with CAD: 08/21/18 10:19:00 CLINICAL: Routine screening. COMPARISON:None available. FINDINGS: The breasts are almost entirely fatty. No mass, architectural distortion or suspicious calcifications. IMPRESSION: No mammographic evidence of malignancy. BI-RADS CATEGORY: 1 - - Negative RECOMMENDATION: Routine mammographic screening in one year. COMMENT: Patient follow-up letters are generated by our [employer] application.
== END 2018-08-21 10:20 | disposition home or self-care (01) ==
LOC: MAMMO 10:19
PROVIDERS: ATTEND Family Medicine
DX: Z12.31 Encounter for screening mammogram for malignant neoplasm of breast (principal); I10 Essential (primary) hypertension; M19.90 Unspecified osteoarthritis, unspecified site
CPT/HCPCS: 77067

== ENCOUNTER 2019-01-01 12:32 | Outpatient (CLI) | payer MEDICAID ==
[2019-01-01 12:54] LABS: Hematocrit 34.7 % (30.3-42.9); Hemoglobin 11.4 gm/dl (10.1-14.3); Mean Corpuscular HGB Conc 33 % (30-34); Mean Corpuscular Volume 87 fl (79-97); Platelet Count 211 K/mm3 (140-440)
[2019-01-01 12:58] LABS: Bilirubin,Urine NEG (Negative); Blood,Urine NEG (Negative); Color,Urine Yellow (Yellow); Mucus,Urine FEW /HPF; Protein,Urine <15 mg/dL mg/dL (Negative); Urobilinogen,Urine < 2.0 mg/dL (<2.0)
[2019-01-01 13:06] LABS: Protein/Creatinine Ratio,Urine 0.08
[2019-01-01 13:14] LABS: Calcium 9.9 mg/dL (8.4-10.2)
== END 2019-01-01 12:33 | disposition home or self-care (01) ==
LOC: LAB 12:32
PROVIDERS: ATTEND Internal Medicine Nephrology
DX: N25.81 Secondary hyperparathyroidism of renal origin (principal); I12.9 Hypertensive chronic kidney disease with stage 1 through stage 4 chronic kidney disease, or unspecified chronic kidney disease; N18.3 Chronic kidney disease, stage 3 (moderate); M17.11 Unilateral primary osteoarthritis, right knee
CPT/HCPCS: 36415; 80048; 81001; 82570; 84100; 84156; 85027

== ENCOUNTER 2019-04-09 10:08 | Outpatient (CLI) | payer MEDICAID ==
[2019-04-09 10:27] LABS: Hematocrit 35.7 % (30.3-42.9); Hemoglobin 11.6 gm/dl (10.1-14.3); Mean Corpuscular HGB Conc 32 % (30-34); Mean Corpuscular Volume 86 fl (79-97); Platelet Count 216 K/mm3 (140-440); Red Blood Count 4.17 M/mm3 (3.65-5.03); Red Cell Distribution Width 14.9 % (13.2-15.2)
[2019-04-09 10:31] LABS: Bilirubin,Urine NEG (Negative); Blood,Urine NEG (Negative); Color,Urine Yellow (Yellow); Mucus,Urine FEW /HPF; Protein,Urine <15 mg/dL mg/dL (Negative); Urobilinogen,Urine < 2.0 mg/dL (<2.0)
[2019-04-09 10:50] LABS: Creatinine,Urine 286.9 mg/dL (0.1-20.0); Protein/Creatinine Ratio,Urine 0.07
[2019-04-09 10:51] LABS: Albumin 4.3 g/dL (3.9-5); Calcium 10.2 mg/dL (8.4-10.2)
== END 2019-04-09 10:09 | disposition home or self-care (01) ==
LOC: LAB 10:08
PROVIDERS: ATTEND Internal Medicine Nephrology
DX: I12.9 Hypertensive chronic kidney disease with stage 1 through stage 4 chronic kidney disease, or unspecified chronic kidney disease (principal); N18.3 Chronic kidney disease, stage 3 (moderate)
CPT/HCPCS: 36415; 80053; 81001; 82570; 84156; 85027

== ENCOUNTER 2019-07-09 09:08 | Outpatient (CLI) | payer MEDICAID ==
[2019-07-09 09:27] LABS: Hematocrit 37.4 % (30.3-42.9); Mean Corpuscular HGB Conc 32 % (30-34); Mean Corpuscular Volume 87 fl (79-97); Platelet Count 208 K/mm3 (140-440); Red Blood Count 4.28 M/mm3 (3.65-5.03); Red Cell Distribution Width 16.1 % (13.2-15.2)
[2019-07-09 09:34] LABS: Bilirubin,Urine NEG (Negative); Blood,Urine NEG (Negative); Color,Urine Yellow (Yellow); Mucus,Urine FEW /HPF; Protein,Urine <15 mg/dL mg/dL (Negative); Urobilinogen,Urine < 2.0 mg/dL (<2.0)
[2019-07-09 10:02] LABS: Calcium 10.7 mg/dL (8.4-10.2)
[2019-07-09 12:35] LABS: Creatinine,Urine 254.9 mg/dL (0.1-20.0); Protein/Creatinine Ratio,Urine 0.05
[2019-07-15 10:51] LABS: Vitamin D, 25-OH, D2 66 ng/mL
== END 2019-07-09 09:09 | disposition home or self-care (01) ==
LOC: LAB 09:08
PROVIDERS: ATTEND Internal Medicine Nephrology
DX: N25.81 Secondary hyperparathyroidism of renal origin (principal); N18.3 Chronic kidney disease, stage 3 (moderate); K44.9 Diaphragmatic hernia without obstruction or gangrene; I10 Essential (primary) hypertension
CPT/HCPCS: 36415; 80048; 81001; 82306; 82570; 83970; 84100; 84156; 85027

== ENCOUNTER 2019-09-29 08:16 | Inpatient (IN) | payer MEDICAID ==
[2019-09-29] MEDS ORDERED: KETOROLAC 60 MG/2 ML INJ IM ONE (09:25)
--- NOTE | 2019-09-29 09:28 | Emergency Department Report ---
ED Extremity Problem HPI - General Chief complaint: Extremity Problem,Nontraumatic Stated complaint: RT SIDE HIP AND LEG PAIN Time Seen by Provider: 09/29/19 09:19 Source: patient Mode of arrival: Wheelchair Limitations: No Limitations - History of Present Illness Initial comments: Patient is 79 years old female with history of hypertension, diabetes and arthritis. Patient had right knee replacement few years ago. Patient presented to the ER complaining of right hip pain that radiated down to her leg and right ankle. Patient stated pain started yesterday. Patient stated that she is unable to sleep last night. Patient denied any injury. Patient also denied any fever, chills, chest pain or shortness of breath. MD Complaint: extremity pain - Related Data Home Medications Medication Instructions Recorded Confirmed Last Taken Amlodipine Besylate [Norvasc] 5 mg PO QDAY 07/04/17 07/04/17 Unknown Aspirin [Adult Low Dose Aspirin EC] 81 mg PO QDAY 07/04/17 07/04/17 Unknown AtorvaSTATin 10 mg PO DAILY 07/04/17 07/04/17 Unknown Sennosides Tab [Senokot] 17.2 mg PO QDAY 07/04/17 07/04/17 Unknown Sitagliptin Phosphate [Januvia] 50 mg PO QDAY 07/04/17 07/04/17 Unknown Vit B Comp No.3/Folic/C/Biotin 1 each PO DAILY 07/04/17 07/04/17 Unknown [Nazia-Calvin Rx Tablet] busPIRone [Buspar] 10 mg PO QDAY 07/04/17 07/04/17 Unknown Previous Rx's Medication Instructions Recorded Last Taken Type Albuterol INH(or & Nicu Only) 2 puff IH QID PRN #1 inhalation 07/05/17 Unknown Rx [ProAir HFA Inhaler] Azithromycin [Zithromax Z-ULISES] 250 mg PO DAILY #1 tab 07/05/17 Unknown Rx Prednisone [predniSONE 5 mg (6-Day 5 mg PO .TAPER #1 tab.ds.pk 07/05/17 Unknown Rx Pack, 21 Tabs)] Allergies Allergy/AdvReac Type Severity Reaction Status Date / Time codeine Allergy Unknown Verified 07/02/17 20:51 ED Review of Systems ROS: Stated complaint: RT SIDE HIP AND LEG PAIN Other details as noted in HPI Comment: All other systems reviewed and negative Constitutional: denies: chills, fever Respiratory: denies: cough, shortness of breath, SOB with exertion Cardiovascular: denies: chest pain, palpitations Gastrointestinal: denies: abdominal pain, nausea, vomiting Musculoskeletal: arthralgia, myalgia. denies: back pain Neurological: denies: headache, weakness, numbness, paresthesias, confusion ED Past Medical Hx - Past Medical History Previous Medical History?: Yes Hx Hypertension: Yes Hx Congestive Heart Failure: No Hx Diabetes: Yes Hx Sickle Cell Disease: No Hx Arthritis: Yes (right knee) Hx Asthma: No Hx COPD: No Hx HIV: No Additional medical history: High Cholesterol - Social History Smoking Status: Never Smoker Substance Use Type: None - Medications Home Medications: Home Medications Medication Instructions Recorded Confirmed Last Taken Type Amlodipine Besylate [Norvasc] 5 mg PO QDAY 07/04/17 07/04/17 Unknown History Aspirin [Adult Low Dose Aspirin EC] 81 mg PO QDAY 07/04/17 07/04/17 Unknown History AtorvaSTATin 10 mg PO DAILY 07/04/17 07/04/17 Unknown History Sennosides Tab [Senokot] 17.2 mg PO QDAY 07/04/17 07/04/17 Unknown History Sitagliptin Phosphate [Januvia] 50 mg PO QDAY 07/04/17 07/04/17 Unknown History Vit B Comp No.3/Folic/C/Biotin 1 each PO DAILY 07/04/17 07/04/17 Unknown History [Nazia-Calvin Rx Tablet] busPIRone [Buspar] 10 mg PO QDAY 07/04/17 07/04/17 Unknown History Albuterol INH(or & Nicu Only) 2 puff IH QID PRN #1 inhalation 07/05/17 Unknown Rx [ProAir HFA Inhaler] Azithromycin [Zithromax Z-ULISES] 250 mg PO DAILY #1 tab 07/05/17 Unknown Rx Prednisone [predniSONE 5 mg (6-Day 5 mg PO .TAPER #1 tab.ds.pk 07/05/17 Unknown Rx Pack, 21 Tabs)] ED Physical Exam - General Limitations: No Limitations General appearance: alert, in no apparent distress - Head Head exam: Present: atraumatic, normocephalic, normal inspection - Eye Eye exam: Present: normal appearance - ENT ENT exam: Present: normal exam, normal orophraynx, mucous membranes moist - Neck Neck exam: Present: normal inspection, full ROM. Absent: tenderness, meningismus - Respiratory Respiratory exam: Present: normal lung sounds bilaterally - Cardiovascular Cardiovascular Exam: Present: regular rate, normal rhythm, normal heart sounds - GI/Abdominal GI/Abdominal exam: Present: soft, normal bowel sounds. Absent: distended, tenderness, guarding, rebound, rigid, organomegaly, mass, bruit, pulsatile mass, hernia - Extremities Exam Extremities exam: Present: normal inspection, full ROM, normal capillary refill. Absent: tenderness, pedal edema, calf tenderness - Back Exam Back exam: Present: normal inspection, full ROM. Absent: CVA tenderness (L) - Neurological Exam Neurological exam: Present: alert, oriented X3, CN II-XII intact, reflexes sheela l. Absent: motor sensory deficit - Skin Skin exam: Present: warm, intact, normal color ED Course Vital Signs 09/29/19 09/29/19 09/29/19 08:32 09:16 10:32 Temperature 97.8 F Pulse Rate 73 62 73 Pulse Rate [ Anterior Bilateral Throughout] Respiratory 18 12 17 Rate Respiratory Rate [Anterior Bilateral Throughout] Blood Pressure 133/82 Blood Pressure 130/76 111/62 [Left] O2 Sat by Pulse 99 98 97 Oximetry 09/29/19 09/29/19 10:48 11:33 Temperature Pulse Rate 93 H Pulse Rate [ 82 Anterior Bilateral Throughout] Respiratory 15 Rate Respiratory 18 Rate [Anterior Bilateral Throughout] Blood Pressure Blood Pressure 141/61 [Left] O2 Sat by Pulse 97 Oximetry ED Medical Decision Making - Lab Data Result diagrams: 09/29/19 10:02 09/29/19 14:01 - EKG Data -: EKG Interpreted by Md EKG shows normal: sinus rhythm Rate: normal - EKG Data Interpretation: no acute changes - Medical Decision Making Patient is 79 years old female with history of hypertension, diabetes and arthritis. Patient had right knee replacement few years ago. Patient presented to the ER complaining of right hip pain that radiated down to her leg and right ankle. Patient stated pain started yesterday. Patient stated that she is unable to sleep last night. Patient denied any injury. Patient also denied any fever, chills, chest pain or shortness of breath. Right hip x-ray showed degenerative disc disease, no fracture or dislocation. Right ankle x-ray is negative for acute finding. Labs reviewed and showed hyperkalemia with a potassium of 6.2 and a creatinine of 1.7. Patient received normal saline, Kayexalate, insulin, dextrose and albuterol. I discussed the patient with , analytics manager, he advised to admit to the hospital and he will follow-up with the patient. I discussed the patient with Dr. Ball, she advised to admit the patient to Dr. Shen. Critical Care Time: Yes Critical care time in (mins) excluding proc time.: 30 Critical care attestation.: If time is entered above; I have spent that time in minutes in the direct care of this critically ill patient, excluding procedure time. ED Disposition Clinical Impression: Acute renal insufficiency, Acute hyperkalemia, Right hip pain Disposition: OP ADMIT IP TO THIS HOSP Is pt being admited?: Yes Condition: Stable
[2019-09-29 10:18] LABS: Basophils # (Auto) 0.1 K/mm3 (0.0-0.1); Basophils % (Auto) 0.8 % (0.0-1.8); Eosinophils # (Auto) 0.1 K/mm3 (0.0-0.4); Eosinophils % (Auto) 0.9 % (0.0-4.3); Hemoglobin 12.2 gm/dl (10.1-14.3); Lymphocytes # (Auto) 1.8 K/mm3 (1.2-5.4); Lymphocytes % (Auto) 23.8 % (13.4-35.0); Mean Corpuscular HGB Conc 32 % (30-34); Mean Corpuscular Volume 87 fl (79-97); Monocytes # (Auto) 0.4 K/mm3 (0.0-0.8); Monocytes % (Auto) 5.9 % (0.0-7.3); Platelet Count 189 K/mm3 (140-440); Red Blood Count 4.36 M/mm3 (3.65-5.03); Red Cell Distribution Width 14.5 % (13.2-15.2)
--- NOTE | 2019-09-29 10:26 | XRay Report ---
EXAMINATION: Right ankle radiograph, 3 views CLINICAL INFORMATION: Right ankle pain. No history of trauma. COMPARISON: None. FINDINGS: There is no evidence of acute right ankle fracture, dislocation or focal soft tissue swelli ng. Signer Name: Elina Sullivan MD Signed: 09/29/2019 10:21 AM Workstation Name: [id number]
[2019-09-29 10:27] LABS: Calcium 10.6 mg/dL (8.4-10.2)
--- NOTE | 2019-09-29 10:27 | XRay Report ---
EXAMINATION: Right hip radiograph, 2 views CLINICAL INFORMATION: Right hip pain. No history of trauma. COMPARISON: None. FINDINGS: There is no evidence of acute fracture or dislocation of the right hip. Minimal bony degene rative changes are noted. IMPRESSION: Minimal bony degenerative changes of the right hip. Signer Name: Elina Sullivan MD Signed: 09/29/2019 10:22 AM Workstation Name: [id number]
[2019-09-29] MEDS ORDERED: SODIUM POLYSTYRENE 15 GM/60 ML ORAL LIQD PO ONE ×2 (10:33→10:41)
[2019-09-29] MEDS ORDERED: INSULIN REGULAR, HUMAN 100 UNITS/1 ML IV ONE (10:33)
[2019-09-29] MEDS ORDERED: DEXTROSE 50% IN WATER (25GM) 50 ML SYRINGE IV ONE (10:33)
[2019-09-29] MEDS ORDERED: SODIUM CHLORIDE 0.9% 1000 ML 1,000 ML IV ONE (10:33)
[2019-09-29] MEDS ORDERED: ALBUTEROL 2.5 MG/3 ML NEBU IH ONE (10:41)
--- NOTE | 2019-09-29 11:21 | Consultation ---
History of Present Illness - Reason for Consult Consult date: 09/29/19 acute renal failure, hyperkalemia - History of Present Illness HPI: Ms Hernández is a 79 year old F with a PMH of HTN, CKD, HLD, DM2 who has been admitted to the [facility] with TRICIA on CKD and Hyperkalemia. Pt currently denies N/V, CP, SHOB, belly pain, diarrhea, dysuria. ROS: As in HPI otherwise 12 point review of systems -ve PMH/PSH: DM2, HLD, HTN, CKD SH: Denies alcoholism FH: NC Medications and Allergies Allergies Allergy/AdvReac Type Severity Reaction Status Date / Time codeine Allergy Unknown Verified 07/02/17 20:51 Home Medications Medication Instructions Recorded Confirmed Last Taken Type Amlodipine Besylate [Norvasc] 5 mg PO QDAY 07/04/17 07/04/17 Unknown History Aspirin [Adult Low Dose Aspirin EC] 81 mg PO QDAY 07/04/17 07/04/17 Unknown History AtorvaSTATin 10 mg PO DAILY 07/04/17 07/04/17 Unknown History Sennosides Tab [Senokot] 17.2 mg PO QDAY 07/04/17 07/04/17 Unknown History Sitagliptin Phosphate [Januvia] 50 mg PO QDAY 07/04/17 07/04/17 Unknown History Vit B Comp No.3/Folic/C/Biotin 1 each PO DAILY 07/04/17 07/04/17 Unknown History [Nazia-Calvin Rx Tablet] busPIRone [Buspar] 10 mg PO QDAY 07/04/17 07/04/17 Unknown History Albuterol INH(or & Nicu Only) 2 puff IH QID PRN #1 inhalation 07/05/17 Unknown Rx [ProAir HFA Inhaler] Azithromycin [Zithromax Z-ULISES] 250 mg PO DAILY #1 tab 07/05/17 Unknown Rx Prednisone [predniSONE 5 mg (6-Day 5 mg PO .TAPER #1 tab.ds.pk 07/05/17 Unknown Rx Pack, 21 Tabs)] Active Meds: Active Medications Sodium Chloride (Nacl 0.9% 1000 Ml) 1,000 mls @ 999 mls/hr IV BOLUS ONE Stop: 09/29/19 11:33 Last Admin: 09/29/19 11:16 Dose: 999 mls/hr Documented by: Exam - Vital Signs Vital signs: Vital Signs Temp Pulse Resp BP Pulse Ox 97.8 F 73 18 133/82 99 09/29/19 08:32 09/29/19 08:32 09/29/19 08:32 09/29/19 08:32 09/29/19 08:32 - Physical Exam Narrative exam: [id number] HEENT:Normocephalic Neck:Supple Chest:CTAB CVS:RRR Abdo:Soft/BS+ Ext:No cce Psych:Appropriate mood Results - Lab Results 09/29/19 10:02 09/29/19 14:01 Most recent lab results Calcium 10.6 mg/dL (8.4-10.2) H 09/29/19 10:02 Assessment and Plan Acute Kidney injury on top of CKD: Hyperkalemia: HTN: DM2: HLD: -Medical Management for hyperkalemia ordered -Check Urine studies -Avoid NSAIDs -Renally dose all meds -Avoid Nephrotoxic meds -Strict I/Os Keaton Gomez MD [phone]
--- NOTE | 2019-09-29 11:47 | XRay Report ---
CHEST 1 VIEW INDICATION / CLINICAL INFORMATION: Hypertension. COMPARISON: None available. FINDINGS: SUPPORT DEVICES: None. HEART / MEDIASTINUM: No significant abnormality. LUNGS / PLEURA: No significant pulmonary or pleural abnormality. No pneumothorax. ADDITIONAL FINDINGS: No significant additional findings. IMPRESSION: 1. No acute findings. Signer Name: Kelechi Garcia MD Signed: 09/29/2019 11:42 AM Workstation Name: [id number]
[2019-09-29 14:51] LABS: Calcium 10.3 mg/dL (8.4-10.2)
--- NOTE | 2019-09-29 14:59 | History and Physical Report ---
History of Present Illness Date of examination: 09/30/19 Date of admission: 09/29/19 10:47 Chief complaint: Right hip pain History of present illness: Patient is 79 yo with hypertension, diabetes. She had osteoarthritis right knee s/p knee replacement. She presented with right hip pain, 10/10, severe sharp pain, radiating down right lower ext. She denied back pain, denied fever, She was seen and evaluated in ED. Hip X ray show degenerative changes. labs reveal hyperkalemia with Potasium 6.2 and acute on CKD with Cr 1.7. Will admit. Past History Past Medical History: diabetes, hypertension, renal failure (chronic kidney disease) Past Surgical History: total knee replacement Social history: lives with family, full code. denies: smoking, alcohol abuse Family history: no significant family history Medications and Allergies Allergies Allergy/AdvReac Type Severity Reaction Status Date / Time codeine AdvReac Mild Nausea Verified 09/30/19 11:40 Home Medications Medication Instructions Recorded Confirmed Last Taken Type Amlodipine Besylate [Norvasc] 5 mg PO QDAY 07/04/17 09/30/19 1 Day Ago History ~09/29/19 Aspirin [Adult Low Dose Aspirin EC] 81 mg PO QDAY 07/04/17 09/30/19 1 Day Ago History ~09/29/19 AtorvaSTATin 10 mg PO DAILY 07/04/17 09/30/19 1 Day Ago History ~09/29/19 Sennosides Tab [Senokot] 17.2 mg PO QDAY 07/04/17 09/30/19 1 Day Ago History ~09/29/19 Sitagliptin Phosphate [Januvia] 50 mg PO QDAY 07/04/17 09/30/19 1 Day Ago History ~09/29/19 Vit B Comp No.3/Folic/C/Biotin 1 each PO DAILY 07/04/17 09/30/19 1 Day Ago History [Nazia-Calvin Rx Tablet] ~09/29/19 busPIRone [Buspar] 10 mg PO QDAY 07/04/17 09/30/19 1 Day Ago History ~09/29/19 Albuterol INH(or & Nicu Only) 2 puff IH QID PRN #1 inhalation 07/05/17 09/30/19 Unknown Rx [ProAir HFA Inhaler] Review of Systems All systems: negative (No fever, no cough, no chest pain. All other systems reviewed and are negative) Exam - Physical Exam Narrative exam: GEN: Not in acute distress, lying in bed, HEENT: Normocephalic, atraumatic, Neck: supple, No JVD Lungs: Clear , no crackles, heart;S1 and S2 reg, no murmurs, rubs or gallop Abd:soft, non tender, non distended, normal bowel sounds Ext: Tender right hip, No edema, no clubbing, no cyanosis, scar right knee Neuro: Awake,alert, oriented X 3, no focal neurological signs - Constitutional Vitals: Temp Pulse Resp BP Pulse Ox 97.8 F 93 H 15 141/61 97 09/29/19 08:32 09/29/19 11:33 09/29/19 11:33 09/29/19 11:33 09/29/19 11:33 Results - Labs CBC & Chem 7: 09/30/19 05:12 09/30/19 05:12 Labs: Abnormal lab results 09/29/19 09/29/19 Range/Units 10:02 14:01 Potassium 6.2 H* (3.6-5.0) mmol/L Carbon Dioxide 21 L 21 L (22-30) mmol/L BUN 32 H 32 H (7-17) mg/dL Creatinine 1.7 H 1.8 H (0.7-1.2) mg/dL Glucose 108 H (65-100) mg/dL Calcium 10.6 H 10.3 H (8.4-10.2) mg/dL Assessment and Plan Acute on CKD Admit to Tele Start iv fluids Nephrology consulted patient sees nephrology as outpatient Hyperkalemia Insulin, Kayexalate Repeat Diabetes mellitus type 2 Fingerstick qac and hs Hypertension right hip pain due to osteoarthritis Symptomatic treatment Osteoarthritis s/p right knee replacement Full code status
[2019-09-29] MEDS ORDERED: ACETAMINOPHEN 325 MG TAB PO PRN (15:58)
[2019-09-30 06:17] LABS: Basophils % (Auto) 0.7 % (0.0-1.8); Eosinophils # (Auto) 0.1 K/mm3 (0.0-0.4); Eosinophils % (Auto) 1.3 % (0.0-4.3); Lymphocytes # (Auto) 1.8 K/mm3 (1.2-5.4); Lymphocytes % (Auto) 26.4 % (13.4-35.0); Mean Corpuscular HGB Conc 32 % (30-34); Mean Corpuscular Volume 87 fl (79-97); Monocytes # (Auto) 0.5 K/mm3 (0.0-0.8); Monocytes % (Auto) 7.8 % (0.0-7.3); Platelet Count 166 K/mm3 (140-440); Red Cell Distribution Width 14.3 % (13.2-15.2)
[2019-09-30 06:44] LABS: Calcium 9.6 mg/dL (8.4-10.2)
[2019-09-30] MEDS ORDERED: SODIUM POLYSTYRENE 15 GM/60 ML ORAL LIQD PO NR (09:00)
[2019-09-30] MEDS ORDERED: HYDROcodone/ACETAMINOPHEN 5-325 MG TAB PO PRN (11:41)
[2019-09-30] MEDS ORDERED: HYDROcodone/ACETAMINOPHEN 5-325 MG TAB ONE (12:36)
[2019-09-30] MEDS: ONDANSETRON 4 MG/2 ML INJ IV PRN (12:43)
[2019-09-30] MEDS: SODIUM CHLORIDE 0.9% 1000 ML 1,000 ML IV SCH (12:43)
--- NOTE | 2019-09-30 14:28 | Progress Note ---
Assessment and Plan Assessment: Acute Renal Failure on CKD likely secondary to DM and HTN Hyperkalemia Hypertension Diabetes Mellitus Plan: -Renal labs reviewed. Serum creatinine noted to be 1.8 today, yesterday's was 1.7. -Baseline serum creatinine~1.4-1.5. -On NS@ 50 ml/hr -Will obtain renal ultrasound -Urine lytes to be collected -Avoid NSAIDs -Renally dose all medications -Avoid Nephrotoxic agents -Strict I/O's monitoring -Hyperkalemia-received Kionex 30 gram x 1 today -Continue to monitor renal function closely Subjective Date of service: 09/30/19 Interval history: Patient seen lying in bed. States IV pump has not been working since yesterday. No family at bedside. Objective - Vital Signs Vital signs: Vital Signs - 12hr 09/30/19 09/30/19 09/30/19 04:02 07:58 09:34 Temperature 98.0 F 98.9 F Pulse Rate 85 81 82 Respiratory 18 20 Rate Blood Pressure 96/40 136/63 O2 Sat by Pulse 96 99 Oximetry - General Appearance General appearance: well-developed, appears stated age EENT: ATNC, PERRL, hearing intact, vision intact Neck: no JVD, supple Respiratory: Present: Decreased Breath Sounds Cardiology: regular, S1S2 Gastrointestinal: normoactive bowel sounds Integumentary: warm and dry Neurologic: alert and oriented x3 Musculoskeletal: other (No edema) Psychiatric: mood/affect appropriate - Lab 09/30/19 05:12 09/30/19 05:12 Most recent lab results Calcium 9.6 mg/dL (8.4-10.2) 09/30/19 05:12 Medications & Allergies - Medications Allergies/Adverse Reactions: Allergies codeine Adverse Reaction (Mild, Verified 09/30/19 11:40) Nausea Home Medications: Home Medications Medication Instructions Recorded Confirmed Last Taken Type Amlodipine Besylate [Norvasc] 5 mg PO QDAY 07/04/17 09/30/19 1 Day Ago History ~09/29/19 Aspirin [Adult Low Dose Aspirin EC] 81 mg PO QDAY 07/04/17 09/30/19 1 Day Ago History ~09/29/19 AtorvaSTATin 10 mg PO DAILY 07/04/17 09/30/19 1 Day Ago History ~09/29/19 Sennosides Tab [Senokot] 17.2 mg PO QDAY 07/04/17 09/30/19 1 Day Ago History ~09/29/19 Sitagliptin Phosphate [Januvia] 50 mg PO QDAY 07/04/17 09/30/19 1 Day Ago H istory ~09/29/19 Vit B Comp No.3/Folic/C/Biotin 1 each PO DAILY 07/04/17 09/30/19 1 Day Ago History [Nazia-Calvin Rx Tablet] ~09/29/19 busPIRone [Buspar] 10 mg PO QDAY 07/04/17 09/30/19 1 Day Ago History ~09/29/19 Albuterol INH(or & Nicu Only) 2 puff IH QID PRN #1 inhalation 07/05/17 09/30/19 Unknown Rx [ProAir HFA Inhaler] Active Medications: Generic Name Dose Route Start Last Admin Trade Name Freq PRN Reason Stop Dose Admin Acetaminophen 650 mg 09/29/19 15:58 09/29/19 21:06 Tylenol PO 650 mg Q4H PRN Administration Pain MILD(1-3)/Fever >100.5/RIDLEY Acetaminophen/Hydrocodone Bitart 1 each 09/30/19 13:00 [place] 5/325 PO Q6H PRN Pain, Moderate (4-6) Sodium Chloride 1,000 mls @ 50 mls/hr 09/30/19 09:00 09/30/19 12:43 Nacl 0.9% 1000 Ml IV 50 mls/hr DIRECT URBAN Administration Ondansetron HCl 4 mg 09/29/19 15:58 09/30/19 12:43 Zofran IV 4 mg Q8H PRN Administration Nausea And Vomiting Sodium Chloride 10 ml 09/29/19 22:00 09/30/19 12:45 Sodium Chloride Flush Syringe 10 Ml IV 10 ml BID URBAN Administration Sodium Chloride 10 ml 09/29/19 15:58 Sodium Chloride Flush Syringe 10 Ml IV PRN PRN LINE FLUSH
--- NOTE | 2019-09-30 18:43 | XRay Report ---
RIGHT KNEE 3 VIEWS INDICATION / CLINICAL INFORMATION: MAIN: pain in right LE, hx of TKR pain x 3 days; no known injury; leg feels stiff; TKR x 5 years. COMPARISON: None available. FINDINGS: Right knee prosthesis in position. Considerable hypertrophic bone formation. No obvious joint effusio n. No appreciable fracture or other acute skeletal abnormality. Signer Name: Cr Saunders MD Signed: 09/30/2019 6:38 PM Workstation Name: [id number]
--- NOTE | 2019-09-30 18:45 | Progress Note ---
Assessment and Plan Assessment and plan: Acute on CKD Admitted to Tele Cont iv fluids Nephrology consulted, following patient sees nephrology as outpatient Hyperkalema Kayexalate Repeat in am Diabetes mellitus type 2 Fingerstick qac and hs Hypertension Persistent right hip pain due to osteoarthritis Symptomatic treatment Consult Ortho. I discussed with Dr. Corbin Osteoarthritis s/p right knee replacement Full code status History Interval history: Still c/o pain right hip Hospitalist Physical - Physical exam Narrative exam: GEN: Not in acute distress, lying in bed, HEENT: Normocephalic, atraumatic, Neck: supple, No JVD Lungs: Clear , no crackles, heart;S1 and S2 reg, no murmurs, rubs or gallop Abd:soft, non tender, non distended, normal bowel sounds Ext: Tender right hip, No edema, no clubbing, no cyanosis, scar right knee Neuro: Awake,alert, oriented X 3, no focal neurological signs - Constitutional Vitals: Temp Pulse Resp BP Pulse Ox 99.4 F 77 20 120/55 99 09/30/19 12:12 09/30/19 12:12 09/30/19 12:12 09/30/19 12:12 09/30/19 12:12 Results - Labs CBC & Chem 7: 09/30/19 05:12 09/30/19 05:12 Labs: Laboratory Last Values WBC 6.7 K/mm3 (4.5-11.0) 09/30/19 05:12 RBC 3.90 M/mm3 (3.65-5.03) 09/30/19 05:12 Hgb 11.0 gm/dl (10.1-14.3) 09/30/19 05:12 Hct 34.0 % (30.3-42.9) 09/30/19 05:12 MCV 87 fl (79-97) 09/30/19 05:12 MCH 28 pg (28-32) 09/30/19 05:12 MCHC 32 % (30-34) 09/30/19 05:12 RDW 14.3 % (13.2-15.2) 09/30/19 05:12 Plt Count 166 K/mm3 (140-440) 09/30/19 05:12 Lymph % (Auto) 26.4 % (13.4-35.0) 09/30/19 05:12 [place] % (Auto) 7.8 % (0.0-7.3) H 09/30/19 05:12 Eos % (Auto) 1.3 % (0.0-4.3) 09/30/19 05:12 Baso % (Auto) 0.7 % (0.0-1.8) 09/30/19 05:12 Lymph # 1.8 K/mm3 (1.2-5.4) 09/30/19 05:12 [place] # 0.5 K/mm3 (0.0-0.8) 09/30/19 05:12 Eos # 0.1 K/mm3 (0.0-0.4) 09/30/19 05:12 Baso # 0.0 K/mm3 (0.0-0.1) 09/30/19 05:12 Seg Neutrophils % 63.8 % (40.0-70.0) 09/30/19 05:12 Seg Neutrophils # 4.3 K/mm3 (1.8-7.7) 09/30/19 05:12 D-Dimer 229.79 ng/mlDDU (0-234) 09/29/19 10:02 Sodium 142 mmol/L (137-145) 09/30/19 05:12 Potassium 5.1 mmol/L (3.6-5.0) H D 09/30/19 05:12 Chloride 107.8 mmol/L (98-107) H 09/30/19 05:12 Carbon Dioxide 20 mmol/L (22-30) L 09/30/19 05:12 Anion Gap 19 mmol/L 09/30/19 05:12 BUN 58 mg/dL (7-17) H 09/30/19 05:12 Creatinine 1.8 mg/dL (0.7-1.2) H 09/30/19 05:12 Estimated GFR 33 ml/min 09/30/19 05:12 BUN/Creatinine Ratio 32 % 09/30/19 05:12 Glucose 111 mg/dL (65-100) H 09/30/19 05:12 POC Glucose 79 (70-105) 09/30/19 12:22 Hemoglobin A1c 5.7 % (4-6) 09/29/19 10:02 Calcium 9.6 mg/dL (8.4-10.2) 09/30/19 05:12 Active Medications - Current Medications Current Medications: Generic Name Dose Route Start Last Admin Trade Name Freq PRN Reason Stop Dose Admin Acetaminophen 650 mg 09/29/19 15:58 09/29/19 21:06 Tylenol PO 650 mg Q4H PRN Administration Pain MILD(1-3)/Fever >100.5/RIDLEY Acetaminophen/Hydrocodone Bitart 1 each 09/30/19 13:00 [place] 5/325 PO Q6H PRN Pain, Moderate (4-6) Sodium Chloride 1,000 mls @ 50 mls/hr 09/30/19 09:00 09/30/19 12:43 Nacl 0.9% 1000 Ml IV 50 mls/hr DIRECT URBAN Administration Ondansetron HCl 4 mg 09/29/19 15:58 09/30/19 12:43 Zofran IV 4 mg Q8H PRN Administration Nausea And Vomiting Sodium Chloride 10 ml 09/29/19 22:00 09/30/19 12:45 Sodium Chloride Flush Syringe 10 Ml IV 10 ml BID URBAN Administration Sodium Chloride 10 ml 09/29/19 15:58 Sodium Chloride Flush Syringe 10 Ml IV PRN PRN LINE FLUSH
[2019-09-30] MEDS: HYDROcodone/ACETAMINOPHEN 5-325 MG TAB PO PRN (19:23)
--- NOTE | 2019-09-30 19:28 | Ultrasound Report ---
ULTRASOUND RENAL INDICATION: Renal failure. COMPARISON: No relevant prior imaging study available. FINDINGS: RIGHT KIDNEY: Size: 9.0 cm. Echogenicity: Normal. Cortical thickness: Normal. Stones: None. Hydronephrosis: None. Cyst or mass: None. LEFT KIDNEY: Size: 9.5 cm. Echogenicity: Normal. Cortical thickness: Normal. Stones: None. Hydronephrosis: None. Cyst or mass: None. Urinary Bladder: No significant abnormality. Free Fluid: None. Additional Findings: None. IMPRESSION 1. No acute sonographic abnormality of the kidneys. Signer Name: Errol Middleton MD Signed: 09/30/2019 7:23 PM Workstation Name: [id number]
[2019-10-01] MEDS: HYDROcodone/ACETAMINOPHEN 5-325 MG TAB PO PRN ×3 (01:12→13:55)
[2019-10-01 06:31] LABS: Basophils % (Auto) 0.4 % (0.0-1.8); Eosinophils # (Auto) 0.1 K/mm3 (0.0-0.4); Eosinophils % (Auto) 1.9 % (0.0-4.3); Hematocrit 33.2 % (30.3-42.9); Hemoglobin 10.8 gm/dl (10.1-14.3); Lymphocytes # (Auto) 2.2 K/mm3 (1.2-5.4); Lymphocytes % (Auto) 32.9 % (13.4-35.0); Mean Corpuscular HGB Conc 33 % (30-34); Mean Corpuscular Volume 87 fl (79-97); Monocytes # (Auto) 0.4 K/mm3 (0.0-0.8); Monocytes % (Auto) 5.9 % (0.0-7.3); Platelet Count 165 K/mm3 (140-440); Red Blood Count 3.82 M/mm3 (3.65-5.03); Red Cell Distribution Width 14.7 % (13.2-15.2)
[2019-10-01 06:47] LABS: Calcium 9.7 mg/dL (8.4-10.2)
[2019-10-01] MEDS: ONDANSETRON 4 MG/2 ML INJ IV PRN ×2 (08:05→14:47)
[2019-10-01] MEDS: SODIUM CHLORIDE 0.9% 1000 ML 1,000 ML IV SCH (08:35)
--- NOTE | 2019-10-01 08:43 | Progress Note ---
Assessment and Plan Acute Renal Failure on CKD likely secondary to DM and HTN Hyperkalemia Hypertension Diabetes Mellitus Plan: - Cr is trending down with gentle IVF -Baseline serum creatinine~1.4-1.5. -Avoid NSAIDs -Renally dose all medications -Avoid Nephrotoxic agents -Strict I/O's monitoring -Continue to monitor renal function closely Shekhar Chisholm MD [phone] Subjective Date of service: 10/01/19 Principal diagnosis: TRICIA Interval history: c/o back pain Objective - Vital Signs Vital signs: Vital Signs - 12hr 09/30/19 09/30/19 10/01/19 22:00 23:42 01:12 Temperature 98.4 F Pulse Rate 81 89 Respiratory 18 20 Rate Blood Pressure 117/58 O2 Sat by Pulse 97 Oximetry 10/01/19 10/01/19 04:47 07:13 Temperature 98.1 F Pulse Rate 87 Respiratory 18 20 Rate Blood Pressure 98/47 O2 Sat by Pulse 96 Oximetry - General Appearance General appearance: well-developed, well-nourished EENT: ATNC, PERRL, mucous membranes moist Neck: no JVD, no carotid bruit Respiratory: Present: Clear to Ascultation. Absent: Rales, Ronchi Cardiology: regular, S1S2 Gastrointestinal: normoactive bowel sounds, no tenderness, no distended Integumentary: no rash, warm and dry Neurologic: no focal deficit, no asterixis, alert and oriented x3 Musculoskeletal: other (tarce pitting edema in BLE) Psychiatric: mood/affect appropriate, cooperative - Lab 10/01/19 05:38 10/01/19 05:38 Most recent lab results Calcium 9.7 mg/dL (8.4-10.2) 10/01/19 05:38 Phosphorus 3.30 mg/dL (2.5-4.5) 10/01/19 05:38 Medications & Allergies - Medications Allergies/Adverse Reactions: Allergies codeine Adverse Reaction (Mild, Verified 09/30/19 11:40) Nausea Home Medications: Home Medications Medication Instructions Recorded Confirmed Last Taken Type Amlodipine Besylate [Norvasc] 5 mg PO QDAY 07/04/17 09/30/19 1 Day Ago History ~09/29/19 Aspirin [Adult Low Dose Aspirin EC] 81 mg PO QDAY 07/04/17 09/30/19 1 Day Ago History ~09/29/19 AtorvaSTATin 10 mg PO DAILY 07/04/17 09/30/19 1 Day Ago History ~09/29/19 Sennosides Tab [Senokot] 17.2 mg PO QDAY 07/04/17 09/30/19 1 Day Ago History ~09/29/19 Sitagliptin Phosphate [Januvia] 50 mg PO QDAY 07/04/17 09/30/19 1 Day Ago History ~09/29/19 Vit B Comp No.3/Folic/C/Biotin 1 each PO DAILY 07/04/17 09/30/19 1 Day Ago History [Nazia-Calvin Rx Tablet] ~09/29/19 busPIRone [Buspar] 10 mg PO QDAY 07/04/17 09/30/19 1 Day Ago History ~09/29/19 Albuterol INH(or & Nicu Only) 2 puff IH QID PRN #1 inhalation 07/05/17 09/30/19 Unknown Rx [ProAir HFA Inhaler] Active Medications: Generic Name Dose Route Start Last Admin Trade Name Freq PRN Reason Stop Dose Admin Acetaminophen 650 mg 09/29/19 15:58 09/29/19 21:06 Tylenol PO 650 mg Q4H PRN Administration Pain MILD(1-3)/Fever >100.5/RIDLEY Acetaminophen/Hydrocodone Bitart 1 each 09/30/19 13:00 10/01/19 07:13 [place] 5/325 PO 1 each Q6H PRN Administration Pain, Moderate (4-6) Heparin Sodium (Porcine) 5,000 unit 10/01/19 10:00 Heparin SUB-Q Q12HR URBAN Sodium Chloride 1,000 mls @ 50 mls/hr 09/30/19 09:00 10/01/19 08:35 Nacl 0.9% 1000 Ml IV 50 mls/hr DIRECT URBAN Administration Ondansetron HCl 4 mg 09/29/19 15:58 09/30/19 12:43 Zofran IV 4 mg Q8H PRN Administration Nausea And Vomiting Sodium Chloride 10 ml 09/29/19 22:00 09/30/19 21:58 Sodium Chloride Flush Syringe 10 Ml IV 10 ml BID URBAN Administration Sodium Chloride 10 ml 09/29/19 15:58 Sodium Chloride Flush Syringe 10 Ml IV PRN PRN LINE FLUSH
--- NOTE | 2019-10-01 08:43 | Consultation ---
History of Present Illness - HPI Consult date: 10/01/19 Consult reason: low back pain History of present illness: 79 y/o female with c/o low back and right leg pain, states pain began after attending [employer] where she did a lot of standing...states pain radiates down the leg associated with numbness/tingling sensation Past History Past Medical History: diabetes, hypertension, renal failure (chronic kidney disease) Past Surgical History: total knee replacement Social history: lives with family, full code. denies: smoking, alcohol abuse Family history: no significant family history Medications and Allergies Allergies Allergy/AdvReac Type Severity Reaction Status Date / Time codeine AdvReac Mild Nausea Verified 09/30/19 11:40 Home Medications Medication Instructions Recorded Confirmed Last Taken Type Amlodipine Besylate [Norvasc] 5 mg PO QDAY 07/04/17 09/30/19 1 Day Ago History ~09/29/19 Aspirin [Adult Low Dose Aspirin EC] 81 mg PO QDAY 07/04/17 09/30/19 1 Day Ago History ~09/29/19 AtorvaSTATin 10 mg PO DAILY 07/04/17 09/30/19 1 Day Ago History ~09/29/19 Sennosides Tab [Senokot] 17.2 mg PO QDAY 07/04/17 09/30/19 1 Day Ago History ~09/29/19 Sitagliptin Phosphate [Januvia] 50 mg PO QDAY 07/04/17 09/30/19 1 Day Ago History ~09/29/19 Vit B Comp No.3/Folic/C/Biotin 1 each PO DAILY 07/04/17 09/30/19 1 Day Ago History [Nazia-Calvin Rx Tablet] ~09/29/19 busPIRone [Buspar] 10 mg PO QDAY 07/04/17 09/30/19 1 Day Ago History ~09/29/19 Albuterol INH(or & Nicu Only) 2 puff IH QID PRN #1 inhalation 07/05/17 09/30/19 Unknown Rx [ProAir HFA Inhaler] Active Meds: Active Medications Acetaminophen (Tylenol) 650 mg PO Q4H PRN PRN Reason: Pain MILD(1-3)/Fever >100.5/RIDLEY Last Admin: 09/29/19 21:06 Dose: 650 mg Documented by: Acetaminophen/Hydrocodone Bitart ([place] 5/325) 1 each PO Q6H PRN PRN Reason: Pain, Moderate (4-6) Last Admin: 10/01/19 07:13 Dose: 1 each Documented by: Heparin Sodium (Porcine) (Heparin) 5,000 unit SUB-Q Q12HR URBAN Sodium Chloride (Nacl 0.9% 1000 Ml) 1,000 mls @ 50 mls/hr IV DIRECT URBAN Last Admin: 10/01/19 08:35 Dose: 50 mls/hr Documented by: Ondansetron HCl (Zofran) 4 mg IV Q8H PRN PRN Reason: Nausea And Vomiting Last Admin: 09/30/19 12:43 Dose: 4 mg Documented by: Sodium Chloride (Sodium Chloride Flush Syringe 10 Ml) 10 ml IV BID URBAN Last Admin: 09/30/19 21:58 Dose: 10 ml Documented by: Sodium Chloride (Sodium Chloride Flush Syringe 10 Ml) 10 ml IV PRN PRN PRN Reason: LINE FLUSH Physical Examination - Physical exam Narrative exam: L-spine - tender at paraspinal muscles, SLR negative, decreased active ROM, DTR's sym Eyes: PERRL ENT: Positive: clear oral mucosa Respiratory effort: normal Respiratory: bilateral: CTA Rhythm: regular Heart Sounds: Positive: S1 & S2 General gastrointestinal: Positive: soft, non-tender, non-distended, normal bowel sounds Integumentary: clear, warm, dry Neurologic: Positive: CNII-XII intact, moves all extremities, gait normal. Negative: focal deficits Assessment and Plan Sciatica will get plain xrays lumbar spin
[2019-10-01] MEDS ORDERED: HEPARIN 5,000 UNIT/1 ML VIAL SUB-Q SCH (10:00)
[2019-10-01 10:20] VITALS: BP 95/55
--- NOTE | 2019-10-01 12:48 | Discharge Summary ---
Providers - Providers Date of Admission: 09/29/19 10:47 Date of discharge: 10/01/19 Attending physician: JORGE LUIS ROQUE 09/29/19 10:42 Consult to Physician [CONS] Stat Comment: Consulting Provider: MIRTA COLLAZO Physician Instructions: Reason For Exam: Acute hyperkalemia, chronic kidney disease 09/30/19 09:58 Physical Therapy Evaluation and Treat [CONS] Routine Comment: Reason For Exam: Pain right hip with difficult ambulation 09/30/19 12:57 Consult to Physician [CONS] Routine Comment: Consulting Provider: JACOB CORBIN Physician Instructions: Reason For Exam: severe right hip pain Primary care physician: TRAFFIC SURVEY TECHNICIAN Hospitalization Reason for admission: Hyperkalemia Condition: Stable Hospital course: Ms Hernández is a 79 year old F with a PMH of HTN, CKD, HLD, DM2 who has been admitted to the [facility] with TRICIA on CKD and Hyperkalemia and right hip pain. Hip X ray show degenerative changes. Labs reveal hyperkalemia with Potasium 6.2 and acute on CKD with Cr 1.7. The patient was seen by nephrology in consultation who recommended gentle IV fluid hydration. Patient's creatinine improved back to her baseline of 1.5 and hyperkalemia resolved. Orthopedics saw the patient for the hip pain and diagnosed with sciatica. Nephrology wanted the patient to avoid NSAIDs. Therefore, patient will be discharged with narcotics and is to follow-up as an outpatient with Dr. Corbin. Dedicated discharge time 35 minutes. Disposition: TO HOME OR SELFCARE Time spent for discharge: 35 - Discharge Diagnoses (1) Sciatic leg pain Status: Acute (2) Acute hyperkalemia Status: Acute (3) Acute renal insufficiency Status: Acute (4) Right hip pain Status: Acute Core Measure Documentation - Palliative Care Palliative Care/ Comfort Measures: Not Applicable - Core Measures Any of the following diagnoses?: none Exam - Constitutional Vitals: Temp Pulse Resp BP Pulse Ox 98.2 F 87 16 95/55 98 10/01/19 09:13 10/01/19 09:59 10/01/19 10:00 10/01/19 09:13 10/01/19 09:13 General appearance: Present: no acute distress, well-nourished - EENT Eyes: Present: PERRL ENT: hearing intact, clear oral mucosa - Neck Neck: Present: supple, normal ROM - Respiratory Respiratory effort: normal Respiratory: bilateral: CTA - Cardiovascular Heart Sounds: Present: S1 & S2. Absent: rub, click - Extremities Extremities: pulses symmetrical, No edema Peripheral Pulses: within normal limits - Abdominal General gastrointestinal: Present: soft, non-tender, non-distended, normal bowel sounds Female genitourinary: Present: normal - Integumentary Integumentary: Present: clear, warm, dry - Musculoskeletal Musculoskeletal: gait normal, strength equal bilaterally - Psychiatric Psychiatric: appropriate mood/affect, intact judgment & insight - Neurologic Neurologic: CNII-XII intact, moves all extremities Plan Activity: advance as tolerated Weight Bearing Status: Weight Bear as Tolerated Diet: diabetic Follow up with: PRIMARY CAREMD [Primary Care Provider] - 7 Days CARSON VIZCARRA MD [Staff Physician] - 7 Days JACOB CORBIN MD [Staff Physician] - 7 Days Prescriptions: AtorvaSTATin 10 mg PO DAILY #30 busPIRone [Buspar] 10 mg PO QDAY #30 Sitagliptin Phosphate [Januvia] 50 mg PO QDAY #30 HYDROcodone/APAP 5-325 [[place] 5-325 mg TAB] 1 each PO Q6H PRN #12 tablet PRN Reason: Pain, Moderate (4-6) Amlodipine Besylate [Norvasc] 5 mg PO QDAY #30 Sennosides Tab [Senokot] 17.2 mg PO QDAY #30 Ondansetron (Nf) [Zofran TAB] 8 mg PO Q8HR PRN #12 tablet PRN Reason: Nausea And Vomiting
--- NOTE | 2019-10-01 13:51 | XRay Report ---
LUMBAR SPINE 7 VIEWS INDICATION: Low back pain and right leg pain. COMPARISON: No relevant prior imaging study available. FINDINGS: VERTEBRAE: No acute fracture. Grade 1 anterolisthesis is seen at L5-S1. DISC SPACES: Generalized mild discogenic degenerative changes are present. FACET JOINTS: There is multilevel facet hypertrophy, most significant at L4-L5 and L5-S1. SOFT TISSUES: No significant abnormality. ADDITIONAL FINDINGS: No additional significant findings. IMPRESSION: Mild lumbar spondylosis with grade 1 anterolisthesis at L5-S1. Signer Name: Kai Liao MD Signed: 10/01/2019 1:47 PM Workstation Name: [id number]
== END 2019-10-01 16:10 | disposition home or self-care (01) | DRG 551 ==
LOC: ED 08:16 → 4A 10:47
PROVIDERS: ADMIT Internal Medicine; ATTEND Hospitalist
DX: M54.31 Sciatica, right side (principal); N17.0 Acute kidney failure with tubular necrosis; E87.5 Hyperkalemia; N18.9 Chronic kidney disease, unspecified; M19.90 Unspecified osteoarthritis, unspecified site; Z96.651 Presence of right artificial knee joint; E78.00 Pure hypercholesterolemia, unspecified; E78.5 Hyperlipidemia, unspecified; E11.22 Type 2 diabetes mellitus with diabetic chronic kidney disease; I12.9 Hypertensive chronic kidney disease with stage 1 through stage 4 chronic kidney disease, or unspecified chronic kidney disease; Z88.5 Allergy status to narcotic agent; Z79.82 Long term (current) use of aspirin; Z79.899 Other long term (current) drug therapy
CPT/HCPCS: 36415; 71045; 72114; 76770; 80048; 82962; 83036; 84100; 85025; 85379; 93005; 93010; 94644; G0378; J1644; J1815; J1885; J2405; J7030

== ENCOUNTER 2019-10-08 12:21 | Outpatient (CLI) | payer MEDICAID ==
[2019-10-08 13:06] LABS: Hematocrit 33.3 % (30.3-42.9); Hemoglobin 10.9 gm/dl (10.1-14.3); Mean Corpuscular HGB Conc 33 % (30-34); Mean Corpuscular Volume 87 fl (79-97); Platelet Count 222 K/mm3 (140-440); Red Blood Count 3.84 M/mm3 (3.65-5.03); Red Cell Distribution Width 14.8 % (13.2-15.2)
[2019-10-08 13:08] LABS: Bilirubin,Urine NEG (Negative); Blood,Urine NEG (Negative); Color,Urine Yellow (Yellow); Mucus,Urine FEW /HPF; Protein,Urine <15 mg/dL mg/dL (Negative); Urobilinogen,Urine < 2.0 mg/dL (<2.0)
[2019-10-08 13:25] LABS: Calcium 10.6 mg/dL (8.4-10.2)
[2019-10-08 13:55] LABS: Creatinine,Urine 224.7 mg/dL (0.1-20.0); Protein/Creatinine Ratio,Urine 0.08
== END 2019-10-08 12:22 | disposition home or self-care (01) ==
LOC: LAB 12:21
PROVIDERS: ATTEND Internal Medicine Nephrology
DX: N18.3 Chronic kidney disease, stage 3 (moderate) (principal)
CPT/HCPCS: 36415; 80048; 81001; 82570; 84156; 85027

== ENCOUNTER 2019-10-12 20:58 | Emergency (ER) | payer MEDICAID ==
--- NOTE | 2019-10-12 22:47 | Emergency Department Report ---
HPI - General Chief Complaint: Abdominal Pain Time Seen by Provider: 10/12/19 22:29 - HPI HPI: Room 22 The patient is a 79-year-old female present with a chief complaint of constipation. The patient states she suffered from constipation since 09/29/2019. Patient states she came to the hospital that time secondary to right hip pain. Patient states she was started on hydrocodone. The patient states today she took magnesium citrate and only liquid came out. Patient only admits to nausea whenever she takes her pain medication but denies vomiting. Patient denies abdominal pain. Patient states she is taken 2 enemas and only a small amount of hard stool comes out. ED Past Medical Hx - Past Medical History Previous Medical History?: Yes Hx Hypertension: Yes Hx Diabetes: Yes Hx Arthritis: Yes (right knee) Additional medical history: High Cholesterol - Surgical History Past Surgical History?: No - Family History Family history: no significant - Social History Smoking Status: Never Smoker Substance Use Type: None (Denies illicit drug use) - Medications Home Medications: Home Medications Medication Instructions Recorded Confirmed Last Taken Type Aspirin [Adult Low Dose Aspirin EC] 81 mg PO QDAY 07/04/17 09/30/19 1 Day Ago History ~09/29/19 Vit B Comp No.3/Folic/C/Biotin 1 each PO DAILY 07/04/17 09/30/19 1 Day Ago History [Nazia-Calvin Rx Tablet] ~09/29/19 Albuterol INH(or & Nicu Only) 2 puff IH QID PRN #1 inhalation 07/05/17 09/30/19 Unknown Rx [ProAir HFA Inhaler] Amlodipine Besylate [Norvasc] 5 mg PO QDAY #30 10/01/19 Unknown Rx AtorvaSTATin 10 mg PO DAILY #30 10/01/19 Unknown Rx HYDROcodone/APAP 5-325 [[facility] 1 each PO Q6H PRN #12 tablet 10/01/19 Unknown Rx 5-325 mg TAB] Ondansetron (Nf) [Zofran TAB] 8 mg PO Q8HR PRN #12 tablet 10/01/19 Unknown Rx Sennosides Tab [Senokot] 17.2 mg PO QDAY #30 10/01/19 Unknown Rx Sitagliptin Phosphate [Januvia] 50 mg PO QDAY #30 10/01/19 Unknown Rx busPIRone [Buspar] 10 mg PO QDAY #30 10/01/19 Unknown Rx Docusate Sodium [Colace] 100 mg PO BID #20 capsule 10/13/19 Unknown Rx Polyethylene Glycol/Elect 4,000 ml PO ONCE PRN #1 bottle 10/13/19 Unknown Rx [Golytely] levoFLOXacin [Levaquin TAB] 500 mg PO QDAY #7 tablet 10/13/19 Unknown Rx metroNIDAZOLE [Flagyl] 500 mg PO Q8HR #21 tablet 10/13/19 Unknown Rx ED Review of Systems ROS: Stated complaint: CONSTIPATION Other details as noted in HPI Constitutional: no symptoms reported Eyes: denies: eye pain Respiratory: no symptoms reported Gastrointestinal: nausea, constipation. denies: abdominal pain, vomiting Physical Exam - Physical Exam Vital Signs: Vital Signs 10/12/19 10/12/19 21:31 21:42 Temperature 98.2 F 97.9 F Pulse Rate 101 H 95 H Respiratory 18 18 Rate Blood Pressure 164/84 164/84 O2 Sat by Pulse 98 98 Oximetry Physical Exam: GENERAL: The patient is well-developed well-nourished []. [] HEENT: Normocephalic. Atraumatic. Extraocular motions are intact. Patient has moist mucous membranes. NECK: Supple. Trachea midline CHEST/LUNGS: There is no respiratory distress noted. HEART/CARDIOVASCULAR: Regular. There is no tachycardia. There is no gallop rub or murmur. ABDOMEN: Abdomen is soft, nontender. Patient has normal bowel sounds. Mild discomfort to palpation in the midepigastric region. No rebound or guarding SKIN: There is no rash. There is no edema. There is no diaphoresis. NEURO: The patient is awake, alert, and oriented. The patient is cooperative. The patient has normal speech MUSCULOSKELETAL: There is no evidence of acute injury. RECTAL: No stool palpated in the rectal vault ED Course Vital Signs 10/12/19 10/12/19 21:31 21:42 Temperature 98.2 F 97.9 F Pulse Rate 101 H 95 H Respiratory 18 18 Rate Blood Pressure 164/84 164/84 O2 Sat by Pulse 98 98 Oximetry ED Medical Decision Making - Radiology Data Radiology results: report reviewed (CT abdomen pelvis), image reviewed (CT abdomen pelvis) Findings [facility] [address] [place] [address] Cat Scan Report Signed Patient: ELVIE NIÑO MR#: [id number] : 1940 Acct:[id number] Age/Sex: 79 / F ADM Date: 10/12/19 Loc: ED Attending Dr: Ordering Physician: DEMIAN CANTU MD Date of Service: 10/12/19 Procedure(s): CT abdomen pelvis wo con Accession Number(s): [id number] cc: DEMIAN CANTU MD CT ABDOMEN AND PELVIS WITHOUT CONTRAST INDICATION / CLINICAL INFORMATION: MAIN: Generalized Abdominal pain, constipation. TECHNIQUE: Axial CT images were obtained through the abdomen and pelvis without IV contrast. All CT scans at this location are performed using CT dose reduction for ALARA by means of automated exposure control. COMPARISON: None available. FINDINGS: LOWER CHEST: No significant abnormality. Large hiatal hernia is present. LIVER: No significant abnormality. GALLBLADDER: No significant abnormality. BILE DUCTS: No significant abnormality. PANCREAS: No significant abnormality. SPLEEN: No significant abnormality. ADRENALS: No significant abnormality. RIGHT KIDNEY and URETER: No significant abnormality. Renal sinus lipomatosis LEFT KIDNEY and URETER: No significant abnormality. Renal sinus lipomatosis STOMACH and SMALL BOWEL: No significant abnormality. COLON: Diverticulosis of the descending colon and sigmoid colon present APPENDIX: No significant abnormality. PERITONEUM: No free fluid. No free air. No fluid collection. LYMPH NODES: No significant adenopathy. AORTA and ARTERIES: No significant abnormality. IVC and VEINS: No significant abnormality. URINARY BLADDER: No significant abnormality. REPRODUCTIVE ORGANS: Previous hysterectomy ADDITIONAL FINDINGS: None. SKELETAL SYSTEM: Degenerative changes lumbar spine IMPRESSION: 1. No significant abnormality. 2. Diverticulosis descending colon and sigmoid colon, mild diverticulitis at the junction sigmoid colon and descending colon should be considered Signer Name: Colin Waddell MD Signed: 10/12/2019 11:43 PM Workstation Name: [id number] Transcribed By: WG Dictated By: Colin Waddell MD Electronically Authenticated By: Colin Waddell MD Signed Date/Time: 10/12/192342 DD/ 38 TD/TT: - Differential Diagnosis Constipation, partial small bowel obstruction Critical care attestation.: If time is entered above; I have spent that time in minutes in the direct care of this critically ill patient, excluding procedure time. ED Disposition Clinical Impression: Constipation Disposition: DC-01 TO HOME OR SELFCARE Is pt being admited?: No Does the pt Need Aspirin: No Condition: Stable Instructions: Abdominal Pain (ED) Additional Instructions: Return to the emergency department should you develop worsening symptoms, inability to tolerate food or liquids, high fever or any other concerns Prescriptions: Docusate Sodium [Colace] 100 mg PO BID #20 capsule metroNIDAZOLE [Flagyl] 500 mg PO Q8HR #21 tablet Polyethylene Glycol/Elect [Golytely] 4,000 ml PO ONCE PRN #1 bottle PRN Reason: Constipation levoFLOXacin [Levaquin TAB] 500 mg PO QDAY #7 tablet Referrals: EMA THORNE MD [Staff Physician] - 3-5 Days (Dr. Thorne is a assistant county engineer. Please follow-up with him for further evaluation) Time of Disposition: 00:12
[2019-10-12] MEDS ORDERED: LACTULOSE 20 GM/30 ML ORAL LIQD PO ONE (22:53)
--- NOTE | 2019-10-12 23:47 | Cat Scan Report ---
CT ABDOMEN AND PELVIS WITHOUT CONTRAST INDICATION / CLINICAL INFORMATION: MAIN: Generalized Abdominal pain, constipation. TECHNIQUE: Axial CT images were obtained through the abdomen and pelvis without IV contrast. All CT scans at [facility] are performed using CT dose reduction for ALARA by means of automated exposure control. COMPARISON: None available. FINDINGS: LOWER CHEST: No significant abnormality. Large hiatal hernia is present. LIVER: No significant abnormality. GALLBLADDER: No significant abnormality. BILE DUCTS: No significant abnormality. PANCREAS: No significant abnormality. SPLEEN: No significant abnormality. ADRENALS: No significant abnormality. RIGHT KIDNEY and URETER: No significant abnormality. Renal sinus lipomatosis LEFT KIDNEY and URETER: No significant abnormality. Renal sinus lipomatosis STOMACH and SMALL BOWEL: No significant abnormality. COLON: Diverticulosis of the descending colon and sigmoid colon present APPENDIX: No significant abnormality. PERITONEUM: No free fluid. No free air. No fluid collection. LYMPH NODES: No significant adenopathy. AORTA and ARTERIES: No significant abnormality. IVC and VEINS: No significant abnormality. URINARY BLADDER: No significant abnormality. REPRODUCTIVE ORGANS: Previous hysterectomy ADDITIONAL FINDINGS: None. SKELETAL SYSTEM: Degenerative changes lumbar spine IMPRESSION: 1. No significant abnormality. 2. Diverticulosis descending colon and sigmoid colon, mild diverticulitis at the junction sigmoid col on and descending colon should be considered Signer Name: Colin Waddell MD Signed: 10/12/2019 11:43 PM Workstation Name: [id number]
== END 2019-10-13 00:49 | disposition home or self-care (01) ==
LOC: ED 20:58
DX: K59.00 Constipation, unspecified (principal); M25.551 Pain in right hip; E78.00 Pure hypercholesterolemia, unspecified; E11.9 Type 2 diabetes mellitus without complications; M17.11 Unilateral primary osteoarthritis, right knee; Z88.6 Allergy status to analgesic agent; Z79.899 Other long term (current) drug therapy; Z79.82 Long term (current) use of aspirin
CPT/HCPCS: 74176